=== PATIENT | female | born 1945 | race Caucasian/White ===

== ENCOUNTER 2017-07-29 14:59 | Emergency (ER) | payer MEDICARE, SELFPAY ==
[2017-07-29 15:23] VITALS: BP 114/77; PULSE 68; RESP 18; TEMP 36.6; O2SAT 96; BMI 26.4
--- NOTE | 2017-07-29 15:34 | HMH.EDUTC ---
[facility] [place] Disposition Clinical Impression: Gout Qualifiers: Gout site: toe Gout etiology: unspecified cause Chronicity: acute Laterality: right Qualified Code(s): M10.9 - Gout, unspecified Disposition: Home, Self-Care Condition on Discharge: Good Instructions: DI for Gout, Gout Additional Instructions: Take medication as prescribed Follow up with family doctor in 12-48 hours if no improvement or worsening of symptoms Straight to ER if any worsening of symptoms, redness up leg, warmth, streaks, or foot looking dark sanchez or blue in color REturn if needed REST, alow foot to rest and medication to work DO NOT DRINK GRAPEFRUIT JUICE OR EAT GRAPEFRUIT WHILE TAKING MEDICATION Prescriptions: Colchicine [Colcrys 0.6mg tablet] 0.6 mg PO BID #20 tab Indomethacin [Indocin 25mg capsule] 25 mg PO TID #15 cap Referrals: Wayne Miles MD [Primary Care Provider] - Time of Disposition: 16:49 Medical Decision Making - Medical Records Medical records reviewed: Yes: I reviewed the patient's medical records. Vital Signs: 07/29/17 15:23 Temperature 97.9 F Temperature Source Temporal Artery Scan Pulse Rate [Right Brachial] 68 Respiratory Rate 18 Blood Pressure [Right Arm] 114/77 Blood Pressure Mean [Right Arm] 89 Blood Pressure Source [Right Arm] Automatic Cuff Blood Pressure Position [Right Arm] Sitting 02 Sat by Pulse Oximetry 96 Oxygen Delivery Method Room Air - Lab Data Lab Results 07/29/17 15:40: Uric Acid 13.3 H - Davin Inquiry Pt receiving controlled substance: No Davin was queried for this patient: No - Reevaluation(s) Time: 16:24 Reevaluation #1: Patient Uric acid back and found to be elevated Discussed with Patient and contacted Dr Boyd for consult Treatment discussed and agreed with treatment. Patient educated to avoid grapefruit juice with medication [facility] [place] HPI - General Stated complaint: AO 0318 R foot injury Mode of Arrival: Family Vehicle Source of Information: Patient Limitations: No Limitations Description of Symptoms (Recalled from Triage Doc. by RN): C/O PAIN RIGHT GREAT TOE RADIATING INTO FOOT AND LEG SINCE 07/25/17 WITH NO INJURY NOTED HEENT Symptoms (Recalled from RN notes): No Resp Symptoms (Recalled from RN notes): No Skin Symptoms (Recalled from RN notes): No MS Symptoms (Recalled from RN notes): Yes (RIGHT GREAT TOE PAIN) Functional Status (Recalled from RN notes): N/A - History of Present Illness Provider Complaint: Patient state that she noticed about 4-5 days ago that she was having some pain in her right big toe State that toe was a little red, and felt like she was walking on glass when she would stand on foot States that she thought it would get better so she continued to take Tylenol and now today family made her come in to get checked because she was still complaining and states that it is painful to bend the toe and walk. - Related Data Home Medications Medication Instructions Recorded Confirmed aspirin 81 mg tablet,delayed 81 mg PO QDAY 05/22/17 release buspirone 10 mg tablet 10 mg PO BID PRN 05/22/17 07/29/17 calcium carbonate 500 mg calcium 500 mg PO BID tab 05/22/17 07/29/17 (1,250 mg) tablet carvedilol 25 mg tablet 25 mg PO BID tab 05/22/17 07/29/17 fluoxetine 20 mg capsule 20 mg PO QDAY 05/22/17 07/29/17 furosemide 40 mg tablet 40 mg PO BID tab 05/22/17 07/29/17 metformin 1,000 mg tablet 500 mg PO BID tab 05/22/17 07/29/17 multivitamin tablet 1 tab PO QDAY 05/22/17 07/29/17 nitroglycerin 0.4 mg sublingual 0.4 mg SUBLINGUAL Q5M PRN 05/22/17 07/29/17 tablet ticagrelor 90 mg tablet 90 mg PO BID tab 05/22/17 07/29/17 Previous Rx's Medication Instructions Recorded amlodipine 5 mg tablet 5 mg PO QDAY #30 tab 05/22/17 lisinopril 5 mg tablet 5 mg PO BID #60 tab 06/25/17 Colchicine [Colcrys 0.6mg tablet] 0.6 mg PO BID #20 tab 07/29/17 Indomethacin [Indocin 25mg capsule] 25 mg PO TID #15 cap 07/29/17 Allergies Allergy/AdvReac Type Severity Reacti
--- NOTE | 2017-07-29 15:42 | ED_ITS ---
[facility] [place] Disposition Clinical Impression: Gout Qualifiers: Gout site: toe Gout etiology: unspecified cause Chronicity: acute Laterality: right Qualified Code(s): M10.9 - Gout, unspecified Disposition: Home, Self-Care Condition on Discharge: Good Instructions: DI for Gout, Gout Additional Instructions: Take medication as prescribed Follow up with family doctor in 12-48 hours if no improvement or worsening of symptoms Straight to ER if any worsening of symptoms, redness up leg, warmth, streaks, or foot looking dark sanchez or blue in color REturn if needed REST, alow foot to rest and medication to work DO NOT DRINK GRAPEFRUIT JUICE OR EAT GRAPEFRUIT WHILE TAKING MEDICATION Prescriptions: Colchicine [Colcrys 0.6mg tablet] 0.6 mg PO BID #20 tab Indomethacin [Indocin 25mg capsule] 25 mg PO TID #15 cap Referrals: Wayne Miles MD [Primary Care Provider] - Time of Disposition: 16:49 Medical Decision Making - Medical Records Medical records reviewed: Yes: I reviewed the patient's medical records. Vital Signs: 07/29/17 15:23 Temperature 97.9 F Temperature Source Temporal Artery Scan Pulse Rate [Right Brachial] 68 Respiratory Rate 18 Blood Pressure [Right Arm] 114/77 Blood Pressure Mean [Right Arm] 89 Blood Pressure Source [Right Arm] Automatic Cuff Blood Pressure Position [Right Arm] Sitting 02 Sat by Pulse Oximetry 96 Oxygen Delivery Method Room Air - Lab Data Lab Results 07/29/17 15:40: Uric Acid 13.3 H - Davin Inquiry Pt receiving controlled substance: No Davin was queried for this patient: No - Reevaluation(s) Time: 16:24 Reevaluation #1: Patient Uric acid back and found to be elevated Discussed with Patient and contacted Dr Boyd for consult Treatment discussed and agreed with treatment. Patient educated to avoid grapefruit juice with medication [facility] [place] HPI - General Stated complaint: AO 0318 R foot injury Mode of Arrival: Family Vehicle Source of Information: Patient Limitations: No Limitations Description of Symptoms (Recalled from Triage Doc. by RN): C/O PAIN RIGHT GREAT TOE RADIATING INTO FOOT AND LEG SINCE 07/25/17 WITH NO INJURY NOTED HEENT Symptoms (Recalled from RN notes): No Resp Symptoms (Recalled from RN notes): No Skin Symptoms (Recalled from RN notes): No MS Symptoms (Recalled from RN notes): Yes (RIGHT GREAT TOE PAIN) Functional Status (Recalled from RN notes): N/A - History of Present Illness Provider Complaint: Patient state that she noticed about 4-5 days ago that she was having some pain in her right big toe State that toe was a little red, and felt like she was walking on glass when she would stand on foot States that she thought it would get better so she continued to take Tylenol and now today family made her come in to get checked because she was still complaining and states that it is painful to bend the toe and walk. - Related Data Home Medications Medication Instructions Recorded Confirmed aspirin 81 mg tablet,delayed 81 mg PO QDAY 05/22/17 release buspirone 10 mg tablet 10 mg PO BID PRN 05/22/17 07/29/17 calcium carbonate 500 mg calcium 500 mg PO BID tab 05/22/17 07/29/17 (1,250 mg) tablet carvedilol 25 mg tablet 25 mg PO BID tab 05/22/17 07/29/17 fluoxetine 20 mg capsule 20 mg PO QDAY 05/22/17 07/29/17 furosemide 40 mg tablet 40 mg PO BID tab 05/22/17 07/29/17 metformin 1,000 mg tablet 500 mg PO BID t
[2017-07-29 16:07] LABS: Uric Acid 13.3 mg/dL (2.6-7.2)
[2017-07-29 17:04] VITALS: BP 120/78; PULSE 70; RESP 20; TEMP 36.6; O2SAT 97
== END 2017-07-29 17:06 | disposition home or self-care (01) ==
PROVIDERS: Emergency Provider Nurse Practitioner; Family Provider Internal Medicine Adolescent Medicine; PCP Internal Medicine Adolescent Medicine
DX: M10.071 Idiopathic gout, right ankle and foot (principal); E11.9 Type 2 diabetes mellitus without complications; Z79.84 Long term (current) use of oral hypoglycemic drugs; E78.5 Hyperlipidemia, unspecified; I10 Essential (primary) hypertension; I25.10 Atherosclerotic heart disease of native coronary artery without angina pectoris; Z87.891 Personal history of nicotine dependence
CPT/HCPCS: G0463; 36415; 84550; 99202

== ENCOUNTER 2017-09-07 00:14 | Observation (INO) ==
[2017-09-07 00:43] LABS: Basophils % 0.2 % (0.1-2.0); Eosinophils # 0.1 K/mm3 (0.0-0.4); Hemoglobin 11.9 g/dL (12.2-16.2); Lymphocytes # 0.9 K/mm3 (0.7-4.5); Lymphocytes % 15.1 K/mm3 (10-50); Mean Corpuscular HGB Conc 34.9 g/dL (31.8-35.4); Mean Corpuscular Hemoglobin 30.3 pg (27.0-31.2); Mean Corpuscular Volume 86.6 fl (81-99); Mean Platelet Volume 9.7 fl (7.4-10.4); Monocytes # 0.9 K/mm3 (0.1-1.0); Monocytes % 14.4 % (1.7-9.3); Neutrophils # 4.4 K/mm3 (1.8-7.8); Neutrophils % 69.4 % (37.0-80.0); Platelet Count 221 K/mm3 (142-424); Red Blood Count 3.92 M/mm3 (4.20-5.40); Red Cell Distribution Width 12.7 % (11.5-17.5); White Blood Count 6.3 K/mm3 (4.8-10.8)
[2017-09-07 00:52] LABS: Albumin Level 3.5 gm/dL (3.4-5.0); Albumin/Globulin Ratio 0.9 (1.1-1.8); Anion Gap 20.8 mEq/L (5-15); Calcium 9.1 mg/dL (8.5-10.1); Potassium 3.8 mmoL/L (3.5-5.1); Total Protein,Serum 7.5 gm/dL (6.4-8.2)
--- NOTE | 2017-09-07 01:41 | Emergency Department Note ---
ED Disposition Clinical Impression: Gastroenteritis, Dehydration, Orthostatic hypotension Acute on chronic renal failure Qualifiers: Acute renal failure type: unspecified Chronic kidney disease stage: unspecified stage Qualified Code(s): N17.9 - Acute kidney failure, unspecified Disposition: Admitted As Inpatient Condition on Discharge: Fair Referrals: Wayne Miles MD [Primary Care Provider] - Time of Disposition: 02:10 - Critical Care Critical Care Time: No Attestation: On 09/07/17, the high probability of a clinically significant, sudden or life threatening deterioration of the following system(s) required my full and direct attention, intervention and personal management. The time I documented below is in addition to time spent performing reported procedures but includes the following listed in this critical care notation. Medical Decision Making - Medical Records Medical records reviewed: Yes: I reviewed the patient's medical records. - Davin Inquiry Pt receiving controlled substance: No Vital Signs: 09/07/17 00:14 09/07/17 02:09 09/07/17 02:13 Temperature 97.4 F L Temperature Source Oral Pulse Rate [Orthostatic Lying Right Radial] 100 H 96 H Pulse Rate [Orthostatic Sitting Right Brachial] 100 H Pulse Rate [Orthostatic Standing Right Radial] 106 H Pulse Rate [Right Radial] 73 Respiratory Rate 14 Blood Pressure [Orthostatic Lying Right Arm] 106/58 106/70 Blood Pressure [Orthostatic Sitting Right Arm] 98/51 Blood Pressure [Orthostatic Standing Right Arm] 94/50 Blood Pressure [Right Arm] 106/65 Blood Pressure Mean [Right Arm] 78 Blood Pressure Source [Right Arm] Automatic Cuff Blood Pressure Position [Right Arm] Sitting 02 Sat by Pulse Oximetry 99 Oxygen Delivery Method Room Air - Lab Data Lab results reviewed: Yes: I reviewed the patient's lab results. Lab Results 09/07/17 00:22: WBC 6.3, RBC 3.92 L, Hgb 11.9 L, Hct 34.0 L, MCV 86.6, MCH 30.3 , MCHC 34.9, RDW 12.7, Plt Count 221, MPV 9.7, Neut % (Auto) 69.4, Lymph % (Auto ) 15.1, [place] % (Auto) 14.4 H, Eos % (Auto) 1.0, Baso % (Auto) 0.2, Neut # (Auto ) 4.4, Lymph # (Auto) 0.9, [place] # (Auto) 0.9, Eos # (Auto) 0.1, Baso # (Auto) 0.0 09/07/17 00:22: Sodium 133 L, Potassium 3.8, Chloride 96 L, Carbon Dioxide 20 L , Anion Gap 20.8 H, BUN 82 H, Creatinine 2.24 H, Estimated Creat Clear 21, Estimated GFR 21 L, Est GFR ( Amer) 26 L, Glucose 116 H, Calcium 9.1, Total Bilirubin 1.0, AST 75 H, ALT 72, Alkaline Phosphatase 124 H, Total Protein 7.5, Albumin 3.5, Globulin 4.0 H, Albumin/Globulin Ratio 0.9 L Result diagrams: 09/07/17 00:22 09/07/17 00:22 Orders (Tests/Meds): ED MEDICATIONS Generic Name Dose Route Start Last Admin Trade Name Freq PRN Reason Stop Dose Admin Sodium Chloride 1,000 mls @ 999 mls/hr 09/07/17 01:45 09/07/17 01:42 Sod Chlor 0.9% 1000ml Bag IV 09/07/17 02:45 999 mls/hr .Q1H1M LADI Administration Sodium Chloride 1,000 mls @ 999 mls/hr 09/07/17 01:45 09/07/17 01:46 Sod Chlor 0.9% 1000ml Bag IV 09/07/17 02:45 Not Given .Q1H1M LADI Discontinued Medications Generic Name Dose Route Start Last Admin Trade Name Freq PRN Reason Stop Dose Admin Diphenoxylate HCl/Atropine 5 mg 09/07/17 01:38 09/07/17 01:42 Lomotil 2.5mg Tablet PO 09/07/17 01:39 5 mg ONCE ONE Administration Lactated Ringer's 1,000 mls @ 999 mls/hr 09/07/17 00:30 09/07/17 00:28 Lactated Ringer's 1000 Ml Bag IV 09/07/17 01:30 999 mls/hr .Q1H1M LADI Administration Loperamide HCl 4 mg 09/07/17 01:38 09/07/17 01:42 Imodium 2 Mg Capsule PO 09/07/17 01:39 4 mg ONCE ONE Administration Ondansetron HCl 4 mg 09/07/17 00:20 09/07/17 00:28 Zofran 4mg/2ml Vial IV 09/07/17 00:21 4 mg ONCE ONE Administration ORDERS Category Date Time Status Diarrhea Panel, PCR Stat Lab 09/07/17 00:20 Ordered Rapid Influenza A&B Antigens Stat Lab 09/07/17 00:21 Ordered Uric Acid Stat Lab 09/07/17 02:14 Ordered Urinalysis-Acute [Urinalysis and Microscopic] Stat Lab 09/07/17 00:19 Ordered - Physician Consults Physician Consulted: Dr New patel for Dr Miles Time: 02:10 Reason -: Admission, Pt condition Comment/Response: Advised of patient's presentation findings, orthostatic blood pressure changes, as well as patient's GFR of 21, which would preclude the use of metformin at this point. Comparing the renal function trends over the past 6 months it makes it obvious that patient needs to be taken off metformin at this time. Nausea/Vomiting/Diarrhea HPI - General Chief complaint: Nausea/Vomiting/Diarrhea Stated complaint: nausea Time Seen by Provider: 09/07/17 00:20 Mode of Arrival: EMS Limitations: No Limitations Description of Symptoms (Recalled from ER Triage Doc. by RN): Pt. reports nausea , vomiting and diarrhea for 3 days. And tonight she became very weak. - History of Present Illness HPI Narrative: This is a 72-year-old lady arriving to the emergency room by EMS, complaining with generalized weakness, inability to stand, profuse nausea, vomiting and diarrhea, unable to hold anything down over the past 3 days. The patient denies any chest pain, shortness of breath, diaphoresis. Her comorbid conditions are diabetes and coronary artery disease. She takes metformin for her diabetes. Denies being prescribed antibiotics recently, denies any recent travel or exposure to sick contacts. MD complaint: nausea, vomiting, diarrhea Description of Vomiting: food contents Description of Diarrhea: water Associated Abdominal Pain: No Quality: cramping Relieving factors: none Exacerbating factors: vomiting Associated symptoms: nausea/vomiting - Related Data Home Medications Medication Instructions Recorded Confirmed aspirin 81 mg tablet,delayed 81 mg PO QDAY 05/22/17 09/07/17 release buspirone 10 mg tablet 10 mg PO BID PRN 05/22/17 09/07/17 calcium carbonate 500 mg calcium 500 mg PO BID tab 05/22/17 09/07/17 (1,250 mg) tablet furosemide 40 mg tablet 40 mg PO BID tab 05/22/17 09/07/17 metformin 1,000 mg tablet 500 mg PO BID tab 05/22/17 09/07/17 multivitamin tablet 1 tab PO QDAY 05/22/17 09/07/17 Fluoxetine HCl [Prozac] 20 mg PO DAILY 09/07/17 09/07/17 Ticagrelor [Brilinta 90mg Tablet] 90 mg PO BID 09/07/17 09/07/17 Previous Rx's Medication Instructions Recorded amlodipine 5 mg tablet 5 mg PO QDAY #30 tab 05/22/17 Allergies Allergy/AdvReac Type Severity Reaction Status Date / Time Kkpiicl-Eub-Qjn Reductase Allergy Verified 09/07/17 00:[address] [facility] History I have reviewed the patient's past medical history: Yes Medical History: Reports:: Coronary Artery Disease, Diabetes Mellitus Type 2, Hyperlipidemia, Hypertension Denies:: Diabetes Mellitus Type 1 Other Medical History: Reports: Anemia Comment: History of CVA, Muscle aches due to statin Other Surgeries: Yes: Other (CABG, Cardiac cath in 2015, 04/25/2017) Amputation: No Fractures: No - Social History Smoking Status: Former smoker Tobacco Type: cigarettes Alcohol Intake: never Substance Use Type: denies use Occupational Status: retired Housing: house Household Members: spouse - Psychiatric History Expresses thoughts of harming self/others: None Suicide Plan Description: No Plan Family Hx:: Coronary Artery Disease, Heart Attack, Hypertension ROS Obtained: Yes All systems reviewed & no additional complaints, Yes Systems reviewed as appropriate & no additional complaints - Gastrointestinal Gastrointestingal: Reports: system reviewed and no additional complaints, except as docu, as per HPI, diarrhea, nausea, vomiting Physical Exam - General General appearance: alert, in no apparent distress - Head Head exam: atraumatic, normocephalic, normal inspection - Neck Neck exam: Present: normal inspection, full ROM, trachea midline. Absent: meningismus, lymphadenopathy - Chest Chest inspection: Present: normal inspection, symmetric chest wall rise. Absent : tenderness - Respiratory Respiratory exam: Present: normal lung sounds bilaterally. Absent: respiratory distress - Cardiovascular Cardiovascular exam: Present: regular rate, normal rhythm. Absent: JVD - Abdominal Exam Abdominal exam: Present: soft, normal bowel sounds. Absent: distention, tenderness, guarding - Extremities Exam Extremities exam: Present: normal inspection, full ROM, normal capillary refill. Absent: calf tenderness - Back Exam Back exam: Present: normal inspection. Absent: tenderness - Neurological Exam Neurological exam: Present: alert, oriented X3 - Psychiatric Psychiatric exam: Present: normal affect, normal mood - Skin Skin exam: Present: warm, dry, intact, normal color - Lymphatic Lymphatic Findings: no adenopathy
[2017-09-07 03:58] LABS: Microscopic, Urine URINE MICROSCOPIC (MICROSCOPIC)
[2017-09-07 04:41] LABS: Appearance,Urine CLEAR (Clear); Bilirubin,Urine Negative (Negative); Blood, Urine 3+ (Negative); Color,Urine YELLOW (Yellow); Glucose,Urine (UA) Negative (Negative); Ketones,Urine Negative (Negative); Leukocyte Esterase,Urine 2+ (Negative); PH,Urine 5.5 (5.0-8.5); Protein,Urine Negative (Negative); Urobilinogen,Urine 0.2 EU/dl (0.2)
[2017-09-07 06:03] LABS: Bacteria,Urine 2+ /lpf; Hyaline Casts,Urine Occasional #/lpf (0); Mucus,Urine 1+ /lpf; WBC,Urine 20-50 #/hpf (0-3)
--- NOTE | 2017-09-07 07:38 | Pharmacy Consult Notes ---
[facility] Pharmacy VTE Monitoring - Patient Demographics Admission date: 09/07/17 Report Date: 09/07/17 Time: 07:38 Allergies/Adverse Reactions: Patient Allergies Zjxgyjf-Vrx-Amo Reductase Inhibitor Allergy (Verified 09/07/17 00:20) Height: 1.52 m Weight: 54.941 kg Patient Problems: Current Active Problems Gastroenteritis (Acute) Dehydration (Acute) Acute on chronic renal failure (Acute) Orthostatic hypotension (Acute) - VTE Risk Labs: VTE Related Lab Results Hgb 11.9 g/dL (12.2-16.2) L 09/07/17 00:22 Hct 34.0 % (37.0-47.0) L 09/07/17 00:22 Plt Count 221 K/mm3 (142-424) 09/07/17 00:22 BUN 82 mg/dL (7-18) H 09/07/17 00:22 Creatinine 2.24 mg/dL (0.55-1.02) H 09/07/17 00:22 Estimated Creat Clear 21 mL/min (0-300) 09/07/17 00:22 Was VTE Risk Assessment Performed: Yes VTE Score: 8 VTE Risk Level: Moderate Risk - Prophylaxis VTE Prophylaxis Ordered?: Yes Types of VTE Prophylaxis: TEDS Knee High Location of Applied Device: Bilateral Lower Extremeties - VTE Diagnosis Confirmed Treatment or plan recommended: Continue Current Treatment
[2017-09-07 08:17] LABS: Albumin Level 3.2 gm/dL (3.4-5.0); Albumin/Globulin Ratio 0.9 (1.1-1.8); Anion Gap 18.4 mEq/L (5-15); Calcium 8.5 mg/dL (8.5-10.1); Globulin 3.6 gm/dl (1.3-3.2); Potassium 3.4 mmoL/L (3.5-5.1); Total Protein,Serum 6.8 gm/dL (6.4-8.2)
[2017-09-07 08:20] LABS: Basophils % 0.3 % (0.1-2.0); Eosinophils # 0.1 K/mm3 (0.0-0.4); Eosinophils % 1.2 % (0.1-12.0); Hematocrit 32.1 % (37.0-47.0); Hemoglobin 11.2 g/dL (12.2-16.2); Lymphocytes # 0.9 K/mm3 (0.7-4.5); Lymphocytes % 16.3 K/mm3 (10-50); Mean Corpuscular Volume 85.6 fl (81-99); Mean Platelet Volume 9.9 fl (7.4-10.4); Monocytes # 0.7 K/mm3 (0.1-1.0); Monocytes % 13.6 % (1.7-9.3); Neutrophils # 3.7 K/mm3 (1.8-7.8); Neutrophils % 68.6 % (37.0-80.0); Platelet Count 201 K/mm3 (142-424); Red Blood Count 3.74 M/mm3 (4.20-5.40); Red Cell Distribution Width 12.7 % (11.5-17.5); White Blood Count 5.4 K/mm3 (4.8-10.8)
--- NOTE | 2017-09-07 08:22 | History & Physical Report ---
*Admission Date: 09/07/17 *Chief complaint: Diarrhea/vomiting *History of present illness: 72-year-old white female with multiple medical problems, cardiac disease, gouty arthritis, and chronic kidney disease with baseline creatinine 1.2 who came to the emergency department after 24-48 hours of nausea, vomiting, poor p.o. intake. And diarrhea. Patient was found to be dehydrated, had evidence of acute kidney injury superimposed on chronic kidney disease and was dehydrated. Admitted to hospital for IV fluids, medications orally have been held. This morning she feels better, has been able to eat a few bites of breakfast. She denies diarrhea over the past couple of hours. [facility] History I have reviewed the patient's past medical history: Yes Medical History: Reports:: Congenital Heart Disease, Coronary Artery Disease, Diabetes Mellitus Type 2, Hyperlipidemia, Hypertension, Myocardial Infarction Denies:: Cancer, Diabetes Mellitus Type 1, MRSA Other Medical History: Reports: Anemia, Cataracts Other Surgeries: Yes: CABG, Cardiac Catheterization, Cardiac Surgery, Colonoscopy, Coronary Stent, EGD, Other (CABG, Cardiac cath in 2015, 04/25/2017) Amputation: No Fractures: No - *Social History Educational Level: Completed High School Smoking Status: Never smoker Tobacco Type: cigarettes Alcohol Intake: never Substance Use Type: denies use Occupational Status: retired Housing: house Household Members: spouse - Psychiatric History Expresses thoughts of harming self/others: None Suicide Plan Description: No Plan *Family Hx:: Coronary Artery Disease, Heart Attack, Hypertension Review of Systems - Review of Systems Review of systems:: pertinent systems reviewed and negative unless documented below Meds Home Medications Medication Instructions Recorded Confirmed Type aspirin 81 mg tablet,delayed 81 mg PO QDAY 05/22/17 09/07/17 History release buspirone 10 mg tablet 10 mg PO BID PRN 05/22/17 09/07/17 History multivitamin tablet 1 tab PO QDAY 05/22/17 09/07/17 History Amlodipine Besylate [Norvasc 5mg 5 mg PO DAILY 09/07/17 09/07/17 History tablet] Calcium Carbonate 500 mg PO BID 09/07/17 09/07/17 History Fluoxetine HCl [Prozac] 20 mg PO DAILY 09/07/17 09/07/17 History Furosemide [Lasix 40mg tab] 40 mg PO BID 09/07/17 09/07/17 History Metformin HCl [Metformin 500mg 1,000 mg PO BID 09/07/17 09/07/17 History Tablet] Ticagrelor [Brilinta 90mg Tablet] 90 mg PO BID 09/07/17 09/07/17 History Allergies Allergy/AdvReac Type Severity Reaction Status Date / Time Eaqutrf-Nko-Xpt Reductase Allergy Verified 09/07/17 00:20 Inhibitor Exam Vital signs and Labs for Last 24 Hours: Temp Pulse Resp BP Pulse Ox 97.8 F 76 20 156/52 100 09/07/17 03:23 09/07/17 03:23 09/07/17 03:23 09/07/17 03:23 09/07/17 03:23 Laboratory Results - last 24 hr 09/07/17 03:45: Urine Color Yellow, Urine Appearance Clear, Urine pH 5.5, Ur Specific [place] 1.010, Urine Protein Negative, Urine Glucose (UA) Negative, Urine Ketones Negative, Urine Blood 3+, Urine Nitrate Negative, Urine Bilirubin Negative, Urine Urobilinogen 0.2, Ur Leukocyte Esterase 2+ A, Urine RBC 5-10, Urine WBC 20-50, Ur Squamous Epith Cells 5-10, Urine Bacteria 2+, Hyaline Casts Occasional, Urine Mucus 1+ 09/07/17 03:45: Influenza Type A Ag Negative, Influenza Type B Ag Negative I & O for Last 24 hours: Intake & Output 09/04/17 09/05/17 09/06/17 09/07/17 11:59 11:59 11:59 11:59 Intake Total 173 / 173 Output Total 900 / 900 Balance -727 / -727 Weight 121 lb 2 oz Narrative: Patient is alert, oriented 3. Abdomen is soft. Lungs are clear, heart rate regular without murmurs. Extremities show no evidence of acute gouty arthritis. She has no redness. She has no edema. Warm distal extremities. Good capillary refill. H&P: Result - Labs Labs: Urine 09/07/17 Range/Units 03:45 Urine Color Yellow (Yellow) Urine Appearance Clear (Clear) Urine pH 5.5 (5.0-8.5) Ur Specific [place] 1.010 (1.005-1.030) Urine Protein Negative (Negative) Urine Glucose (UA) Negative (Negative) Assessment and Plan (1) Acute kidney injury Current visit: Yes Status: Acute Category: Medical Code(s): N17.9 - Acute kidney failure, unspecified (2) Dehydration Current visit: Yes Status: Acute Category: Medical Code(s): E86.0 - Dehydration (3) Orthostatic hypotension Current visit: Yes Status: Acute Category: Medical Code(s): I95.1 - Orthostatic hypotension Overall patient seems to be improved. Plan will be to change diet to clear liquids. Labs tomorrow morning. Restart some home medications, obviously hold metformin and other potentially nephrotoxic medications in the context of her acute kidney injury. Check diarrhea PCR.
[2017-09-08 06:17] LABS: Basophils % 0.4 % (0.1-2.0); Eosinophils # 0.1 K/mm3 (0.0-0.4); Eosinophils % 1.3 % (0.1-12.0); Hematocrit 30.8 % (37.0-47.0); Hemoglobin 10.8 g/dL (12.2-16.2); Lymphocytes # 0.7 K/mm3 (0.7-4.5); Lymphocytes % 18.7 K/mm3 (10-50); Mean Corpuscular HGB Conc 35.2 g/dL (31.8-35.4); Mean Corpuscular Hemoglobin 30.2 pg (27.0-31.2); Mean Corpuscular Volume 85.9 fl (81-99); Monocytes # 0.5 K/mm3 (0.1-1.0); Monocytes % 13.9 % (1.7-9.3); Neutrophils # 2.4 K/mm3 (1.8-7.8); Neutrophils % 65.7 % (37.0-80.0); Platelet Count 186 K/mm3 (142-424); Red Blood Count 3.59 M/mm3 (4.20-5.40); Red Cell Distribution Width 12.9 % (11.5-17.5); White Blood Count 3.6 K/mm3 (4.8-10.8)
[2017-09-08 06:49] LABS: Anion Gap 15.1 mEq/L (5-15); Bilirubin,Total 1.1 mg/dL (0.2-1.0); Calcium 8.5 mg/dL (8.5-10.1); Globulin 3.1 gm/dl (1.3-3.2); Potassium 3.1 mmoL/L (3.5-5.1); Total Protein,Serum 6.1 gm/dL (6.4-8.2)
--- NOTE | 2017-09-08 08:41 | Discharge Summary ---
General - General Admission date: 09/07/17 Discharge date: 09/08/17 HPI HPI: 72-year-old white female with multiple medical problems, cardiac disease, gouty arthritis, and chronic kidney disease with baseline creatinine 1.2 who came to the emergency department after 24-48 hours of nausea, vomiting, poor p.o. intake. And diarrhea. Patient was found to be dehydrated, had evidence of acute kidney injury superimposed on chronic kidney disease and was dehydrated. Admitted to hospital for IV fluids, medications orally have been held. This morning she feels better, has been able to eat a few bites of breakfast. She denies diarrhea over the past couple of hours. Hospital Course Hospital Course: Patient was admitted, she was given cautious IV fluids and improved very nicely. Diet was transitioned from clear liquids to low-fat diet yesterday and she tolerated this well and this morning has eaten a good breakfast. She remains somewhat weak but her labs have improved and she is able to do some of her activities of daily living. Plan will be to discharge her home in the care of her . She has appointment with me on Sunday in my [place] office and have urged her to keep this to follow-up her metabolic issues. Objective Vital signs: Temp Pulse Resp BP Pulse Ox 98.5 F 91 H 18 158/68 97 09/08/17 04:00 09/08/17 04:00 09/08/17 04:00 09/08/17 04:00 09/08/17 04:00 Narrative: Patient appears chronically ill and older than her stated age but is alert, lungs are heart rate regular, abdomen soft, skin turgor much improved, mouth is moist. Results Labs on day of discharge: Labs from last 24 hours 09/08/17 09/08/17 09/08/17 06:11 05:45 05:45 WBC 3.6 L D RBC 3.59 L Hgb 10.8 L Hct 30.8 L MCV 85.9 MCH 30.2 MCHC 35.2 RDW 12.9 Plt Count 186 MPV 10.0 Neut % (Auto) 65.7 Lymph % (Auto) 18.7 [place] % (Auto) 13.9 H Eos % (Auto) 1.3 Baso % (Auto) 0.4 Neut # (Auto) 2.4 Lymph # (Auto) 0.7 [place] # (Auto) 0.5 Eos # (Auto) 0.1 Baso # (Auto) 0.0 Sodium 141 Potassium 3.1 L Chloride 103 Carbon Dioxide 26 Anion Gap 15.1 H BUN 34 H D Creatinine 0.98 D Estimated Creat Clear 43 Estimated GFR 56 L Est GFR ( Amer) 67 D Glucose 121 H D POC Glucose 122 H Calcium 8.5 Total Bilirubin 1.1 H AST 76 H ALT 73 Alkaline Phosphatase 104 Total Protein 6.1 L Albumin 3.0 L Globulin 3.1 Albumin/Globulin Ratio 1.0 L Urine Color Urine Appearance Urine pH Ur Specific [place] Urine Protein Urine Glucose (UA) Urine Ketones Urine Blood Urine Nitrate Urine Bilirubin Urine Urobilinogen Ur Leukocyte Esterase Urine RBC Urine WBC Ur Squamous Epith Cells Urine Bacteria Hyaline Casts Urine Mucus 09/07/17 09/07/17 09/07/17 20:13 17:03 11:34 WBC RBC Hgb Hct MCV MCH MCHC RDW Plt Count MPV Neut % (Auto) Lymph % (Auto) [place] % (Auto) Eos % (Auto) Baso % (Auto) Neut # (Auto) Lymph # (Auto) [place] # (Auto) Eos # (Auto) Baso # (Auto) Sodium Potassium Chloride Carbon Dioxide Anion Gap BUN Creatinine Estimated Creat Clear Estimated GFR Est GFR ( Amer) Glucose POC Glucose 134 H 115 H 105 Calcium Total Bilirubin AST ALT Alkaline Phosphatase Total Protein Albumin Globulin Albumin/Globulin Ratio Urine Color Urine Appearance Urine pH Ur Specific [place] Urine Protein Urine Glucose (UA) Urine Ketones Urine Blood Urine Nitrate Urine Bilirubin Urine Urobilinogen Ur Leukocyte Esterase Urine RBC Urine WBC Ur Squamous Epith Cells Urine Bacteria Hyaline Casts Urine Mucus 09/07/17 03:45 WBC RBC Hgb Hct MCV MCH MCHC RDW Plt Count MPV Neut % (Auto) Lymph % (Auto) [place] % (Auto) Eos % (Auto) Baso % (Auto) Neut # (Auto) Lymph # (Auto) [place] # (Auto) Eos # (Auto) Baso # (Auto) Sodium Potassium Chloride Carbon Dioxide Anion Gap BUN Creatinine Estimated Creat Clear Estimated GFR Est GFR ( Amer) Glucose POC Glucose Calcium Total Bilirubin AST ALT Alkaline Phosphatase Total Protein Albumin Globulin Albumin/Globulin Ratio Urine Color Yellow Urine Appearance Clear Urine pH 5.5 Ur Specific [place] 1.010 Urine Protein Negative Urine Glucose (UA) Negative Urine Ketones Negative Urine Blood 3+ Urine Nitrate Negative Urine Bilirubin Negative Urine Urobilinogen 0.2 Ur Leukocyte Esterase 2+ A Urine RBC 5-10 Urine WBC 20-50 Ur Squamous Epith Cells 5-10 Urine Bacteria 2+ Hyaline Casts Occasional Urine Mucus 1+ Preliminary micro results at discharge 09/07/17 03:45 Urine Culture - Preliminary Urine,Clean Catch Gram Negative Rods DS: Diagnosis - Discharge Diagnosis (1) Acute kidney injury Status: Acute (2) Dehydration Status: Acute (3) Orthostatic hypotension Status: Acute Discharge Plan - Patient Discharge Instructions ACTIVITY: Continue current activity DIET: continue same diet - Follow up Plan Follow up with: Wayne Miles MD [Primary Care Provider] - 09/11/17 Disposition: Home, Self-Long Term Medications: Home Medications Medication Instructions Recorded Confirmed Type aspirin 81 mg tablet,delayed 81 mg PO DAILY 05/22/17 09/07/17 History release buspirone 10 mg tablet 10 mg PO TID 05/22/17 09/07/17 History multivitamin tablet 1 tab PO DAILY 05/22/17 09/07/17 History Amlodipine Besylate [Norvasc 5mg 5 mg PO DAILY 09/07/17 09/07/17 History tablet] Calcium Carbonate 500 mg PO BID 09/07/17 09/07/17 History Carvedilol [Carvedilol 25mg Tab] 25 mg PO BID 09/07/17 09/07/17 History Colchicine 0.6 mg PO BID 09/07/17 09/07/17 History Fluoxetine HCl [Prozac] 20 mg PO DAILY 09/07/17 09/07/17 History Furosemide [Lasix 40mg tab] 40 mg PO BID 09/07/17 09/07/17 History Metformin HCl 1,000 mg PO BID 09/07/17 09/07/17 History Ticagrelor [Brilinta 90mg Tablet] 90 mg PO BID 09/07/17 09/07/17 History Prescriptions/Medication Reconciliation: Continue aspirin 81 mg tablet,delayed release 81 mg PO DAILY buspirone 10 mg tablet 10 mg PO TID multivitamin tablet 1 tab PO DAILY Carvedilol [Carvedilol 25mg Tab] 25 mg PO BID Colchicine 0.6 mg PO BID Metformin HCl 1,000 mg PO BID Fluoxetine HCl [Prozac] 20 mg PO DAILY Ticagrelor [Brilinta 90mg Tablet] 90 mg PO BID Furosemide [Lasix 40mg tab] 40 mg PO BID Calcium Carbonate 500 mg PO BID Amlodipine Besylate [Norvasc 5mg tablet] 5 mg PO DAILY
== END 2017-09-08 10:35 | disposition home or self-care (01) ==
LOC: ER 00:14 → 2ND 02:21 → INTOOBSV 02:30 → 2ND 02:35
PROVIDERS: ADMIT Family Medicine; ATTEND Internal Medicine Adolescent Medicine

== ENCOUNTER 2017-10-29 02:46 | Inpatient (IN) ==
[2017-10-29 03:07] LABS: Basophils # 0.1 K/mm3 (0-0.2); Basophils % 0.3 % (0.1-2.0); Eosinophils # 0.3 K/mm3 (0.0-0.4); Eosinophils % 1.6 % (0.1-12.0); Hemoglobin 10.8 g/dL (12.2-16.2); Lymphocytes # 1.5 K/mm3 (0.7-4.5); Lymphocytes % 8.5 K/mm3 (10-50); Mean Corpuscular HGB Conc 30.9 g/dL (31.8-35.4); Mean Corpuscular Hemoglobin 28.3 pg (27.0-31.2); Mean Corpuscular Volume 91.7 fl (81-99); Mean Platelet Volume 7.5 fl (7.4-10.4); Monocytes % 5.4 % (1.7-9.3); Neutrophils # 15.2 K/mm3 (1.8-7.8); Neutrophils % 84.2 % (37.0-80.0); Platelet Count 438 K/mm3 (142-424); Red Blood Count 3.81 M/mm3 (4.20-5.40); Red Cell Distribution Width 14.3 % (11.5-17.5); White Blood Count 18.1 K/mm3 (4.8-10.8)
[2017-10-29 03:25] LABS: Anion Gap 13.6 mEq/L (5-15); Calcium 8.8 mg/dL (8.5-10.1); Eosinophils % 2 % (0-3); Lymphocytes % 9 % (10-50); Monocytes % 2 % (2-9); Neutrophils % 80 % (42-76); Potassium 3.6 mmoL/L (3.5-5.1); Total Cells Counted 100
[2017-10-29 03:26] LABS: Hypochromasia 1+; Rouleaux 2+
[2017-10-29 03:55] LABS: Appearance,Urine CLEAR (Clear); Bilirubin,Urine Negative (Negative); Blood, Urine Negative (Negative); Color,Urine YELLOW (Yellow); Glucose,Urine (UA) Negative (Negative); Ketones,Urine Negative (Negative); Leukocyte Esterase,Urine Negative (Negative); Microscopic, Urine URINE MICROSCOPIC (MICROSCOPIC); Protein,Urine 1+ (Negative); Urobilinogen,Urine 0.2 EU/dl (0.2)
--- NOTE | 2017-10-29 04:10 | Emergency Department Note ---
ED Disposition Clinical Impression: Renal insufficiency Community acquired pneumonia Qualifiers: Laterality: right Lung location: upper lobe of lung Qualified Code(s): J18.1 - Lobar pneumonia, unspecified organism Anemia Qualifiers: Anemia type: unspecified type Qualified Code(s): D64.9 - Anemia, unspecified Disposition: Admitted as Observation Condition on Discharge: Good Referrals: Wayne Miles MD [Primary Care Provider] - - Critical Care Critical Care Time: No Attestation: On 10/29/17, the high probability of a clinically significant, sudden or life threatening deterioration of the following system(s) required my full and direct attention, intervention and personal management. The time I documented below is in addition to time spent performing reported procedures but includes the following listed in this critical care notation. Medical Decision Making - Medical Records Medical records reviewed: Yes: I reviewed the patient's medical records. - Davin Inquiry Pt receiving controlled substance: No Vital Signs: 10/29/17 02:49 10/29/17 03:48 10/29/17 04:00 Temperature 99.2 F 100.2 F H Temperature Source Oral Oral Pulse Rate [Right Radial] 108 H 110 H Respiratory Rate 16 16 Blood Pressure [Right Arm] 123/64 152/74 Blood Pressure Mean [Right Arm] 83 100 Blood Pressure Source [Right Arm] Automatic Cuff Blood Pressure Position [Right Arm] Sitting 02 Sat by Pulse Oximetry 93 L 92 L Oxygen Delivery Method Room Air Room Air - Lab Data Lab results reviewed: Yes: I reviewed the patient's lab results. Lab Results 10/29/17 03:00: WBC 18.1 H, RBC 3.81 L, Hgb 10.8 L, Hct 35.0 L, MCV 91.7, MCH 28.3, MCHC 30.9 L, RDW 14.3, Plt Count 438 H, MPV 7.5, Neut % (Auto) 84.2 H, Lymph % (Auto) 8.5 L, [place] % (Auto) 5.4, Eos % (Auto) 1.6, Baso % (Auto) 0.3, Neut # (Auto) 15.2 H, Lymph # (Auto) 1.5, [place] # (Auto) 1.0, Eos # (Auto) 0.3, Baso # (Auto) 0.1, Total Counted 100, Neutrophils % (Manual) 80 H, Band Neutrophils % 7.0, Lymphocytes % (Manual) 9 L, Monocytes % (Manual) 2, Eosinophils % (Manual) 2, Platelet Estimate Normal, Hypochromasia 1+, Rouleaux 2 + 10/29/17 03:00: Sodium 138, Potassium 3.6, Chloride 99, Carbon Dioxide 29, Anion Gap 13.6, BUN 27 H, Creatinine 1.25 H, Estimated Creat Clear 37, Estimated GFR 42 L, Est GFR ( Amer) 51 L, Glucose 180 H, Calcium 8.8, Troponin I 0.02 10/29/17 03:55: Urine Color Yellow, Urine Appearance Clear, Urine pH 6.0, Ur Specific [place] 1.010, Urine Protein 1+, Urine Glucose (UA) Negative, Urine Ketones Negative, Urine Blood Negative, Urine Nitrate Negative, Urine Bilirubin Negative, Urine Urobilinogen 0.2, Ur Leukocyte Esterase Negative, Urine WBC 3-5 , Ur Squamous Epith Cells 5-10 Result diagrams: 10/29/17 03:00 10/29/17 03:00 Orders (Tests/Meds): ED MEDICATIONS Generic Name Dose Route Start Last Admin Trade Name Freq PRN Reason Stop Dose Admin Azithromycin 500 mg/ Sodium 250 mls @ 250 mls/hr 10/29/17 04:15 Chloride IV 11/12/17 04:14 Q24H LADI Protocol Ceftriaxone Sodium 1 gm/ 50 mls @ 100 mls/hr 10/29/17 04:15 Sodium Chloride IV 11/12/17 04:14 Q24H LADI Protocol Sodium Chloride 3 ml 10/29/17 04:11 Sodium Chloride 3% 15ml Neb IH 11/28/17 04:10 ONCE PRN INDUCE SPUTUM COLLECTION Discontinued Medications Generic Name Dose Route Start Last Admin Trade Name Freq PRN Reason Stop Dose Admin Acetaminophen 500 mg 10/29/17 04:04 10/29/17 04:10 Tylenol 500mg Tablet PO 10/29/17 04:05 500 mg ONCE ONE Administration Sodium Chloride 1,000 mls @ 999 mls/hr 10/29/17 03:00 10/29/17 03:05 Sod Chlor 0.9% 1000ml Bag IV 10/29/17 04:00 999 mls/hr .Q1H1M LADI Administration Methylprednisolone Sodium Succinate 125 mg 10/29/17 03:00 10/29/17 03:05 Solu-Medrol 125mg/2ml Vial IV 10/29/17 03:01 125 mg ONCE ONE Administration ORDERS Category Date Time Status XR chest 2V Stat Exams 10/29/17 02:54 Taken BNP [B-Type Natriuretic Peptide] Stat Lab 10/29/17 04:14 Ordered Lactic Acid Stat Lab 10/29/17 03:40 Ordered Blood Culture Stat Micro 10/29/17 03:55 Ordered Sputum Culture & Gram Stain Stat Micro 10/29/17 04:11 Ordered 12-lead EKG Request [ECG Request by /Luz] Stat Y 10/29/17 02:54 Ordered - Radiology Data #1 Image(s): Chest Image Reviewed: Yes I reviewed the patient's radiology image Preliminary Findings: Abnormal (cap ) - ECG Data Tracing #1 I reviewed this ECG and interpreted as documented below: Arrhythmias present: sinus tach Ischemic changes: non-specific ST-T wave changes - Physician Consults Physician Consulted: delma Reason -: Admission Resp/SOB HPI - General Chief Complaint: Shortness of Breath/Dyspnea Stated Complaint: shortness of air Time Seen by Provider: 10/29/17 02:55 Mode of Arrival: EMS Source of Information: Patient, EMS, Medical Record Limitations: No Limitations Description of Symptoms (Recalled from ER Triage Doc. by RN): Woke up feeling short of breath, nauseated, flush, and felt like her heart was racing. - History of Present Illness sob this am with feeling of palpitations with sl fever but no chest pain MD Complaint: shortness of breath Onset (ago): hour(s) Severity: moderate Relieving factors: nothing Exacerbating factors: nothing Treatment prior to arrival: none - Related Data Home oxygen amount: none Home Medications Medication Instructions Recorded Confirmed aspirin 81 mg tablet,delayed 81 mg PO DAILY 05/22/17 10/29/17 release buspirone 10 mg tablet 10 mg PO TID 05/22/17 10/29/17 multivitamin tablet 1 tab PO DAILY 05/22/17 10/29/17 Calcium Carbonate 500 mg PO BID 09/07/17 10/29/17 Carvedilol [Carvedilol 25mg Tab] 25 mg PO BID 09/07/17 10/29/17 Colchicine 0.6 mg PO BID 09/07/17 10/29/17 Fluoxetine HCl [Prozac] 20 mg PO DAILY 09/07/17 10/29/17 Furosemide [Lasix 40mg tablet] 40 mg PO BID 09/07/17 10/29/17 Metformin HCl 1,000 mg PO BID 09/07/17 10/29/17 Ticagrelor [Brilinta 90mg Tablet] 90 mg PO BID 09/07/17 10/29/17 Previous Rx's Medication Instructions Recorded amlodipine 5 mg tablet 5 mg PO DAILY #90 tab 10/16/17 Allergies Allergy/AdvReac Type Severity Reaction Status Date / Time Ehbkrur-Ucg-Feo Reductase Allergy Verified 10/29/17 02:49 Inhibitor [facility] History I have reviewed the patient's past medical history: Yes Medical History: Reports:: Congenital Heart Disease, Coronary Artery Disease, Diabetes Mellitus Type 2, Hyperlipidemia, Hypertension, Myocardial Infarction Denies:: Cancer, Diabetes Mellitus Type 1, MRSA Other Medical History: Reports: Anemia, Cataracts Comment: History of CVA, Muscle aches due to statin Other Surgeries: Yes: CABG, Cardiac Catheterization, Cardiac Surgery, Colonoscopy, Coronary Stent, EGD, Other (CABG, Cardiac cath in 2015, 04/25/2017) Amputation: No Fractures: No - Social History Smoking Status: Never smoker Tobacco Type: cigarettes Alcohol Intake: never Substance Use Type: denies use Occupational Status: retired Housing: house Household Members: spouse - Psychiatric History Expresses thoughts of harming self/others: None Suicide Plan Description: No Plan Family Hx:: Coronary Artery Disease, Heart Attack, Hypertension ROS Obtained: Yes All systems reviewed & no additional complaints - Constitutional Constitutional: Denies fever(s) - Eyes Eyes: Denies change in vision - ENT Ears, Nose, Mouth, and Throat: Denies sore throat - Cardiovascular Cardiovascular: Denies chest pain, Reports dyspnea - Respiratory Respiratory: Yes cough, No coughing up blood - Gastrointestinal Gastrointestingal: Denies: abdominal pain - Genitourinary Female Genitourinary: Denies hematuria - Musculoskeletal Musculoskeletal: Denies joint pain, Denies joint swelling - Integumentary/Breasts Skin/Breast: Denies rash - Neurologic Neurologic: Denies seizure-like activity Physical Exam - General General appearance: in no apparent distress - Head Head exam: normocephalic - Eye Eye exam: Present: PERRL, EOMI - ENT ENT exam: Present: mucous membranes dry - Neck Neck exam: Present: trachea midline - Respiratory Respiratory exam: Present: other (bilat rhonchi ). Absent: respiratory distress - Cardiovascular Cardiovascular exam: Present: regular rate, systolic murmur, +S4 - Abdominal Exam Abdominal exam: Present: soft - Extremities Exam Extremities exam: Absent: calf tenderness - Neurological Exam Neurological exam: Present: alert, oriented X3, CN II-XII intact - Psychiatric Psychiatric exam: Present: normal affect - Skin Skin exam: Absent: rash
--- NOTE | 2017-10-29 07:25 | Pharmacy Consult Notes ---
[facility] Pharmacy VTE Monitoring - Patient Demographics Admission date: 10/29/17 Report Date: 10/29/17 Time: 07:25 Allergies/Adverse Reactions: Patient Allergies Plmfdpm-Byp-Vvv Reductase Inhibitor Allergy (Verified 10/29/17 02:49) Height: 1.52 m Weight: 56.841 kg Patient Problems: Current Active Problems Community acquired pneumonia (Acute) Renal insufficiency (Acute) Anemia (Acute) - VTE Risk Labs: VTE Related Lab Results Hgb 10.8 g/dL (12.2-16.2) L 10/29/17 03:00 Hct 35.0 % (37.0-47.0) L 10/29/17 03:00 Plt Count 438 K/mm3 (142-424) H 10/29/17 03:00 BUN 27 mg/dL (7-18) H 10/29/17 03:00 Creatinine 1.25 mg/dL (0.55-1.02) H 10/29/17 03:00 Estimated Creat Clear 37 mL/min (0-300) 10/29/17 03:00 Was VTE Risk Assessment Performed: Yes VTE Score: 6 VTE Risk Level: Moderate Risk - Prophylaxis VTE Prophylaxis Ordered?: Yes Types of VTE Prophylaxis: TEDS Knee High, Pharmacological Location of Applied Device: Bilateral Lower Extremeties Pharmacologic Type: Other (BRILINTA ORDERED) - VTE Diagnosis Confirmed Treatment or plan recommended: Continue Current Treatment
--- NOTE | 2017-10-29 07:40 | History & Physical Report ---
*Admission Date: 10/29/17 *Chief complaint: Shortness of breath *History of present illness: 72 yr old female with history of CAD, HTN, DM and gout presented to ED after waking with acute onset shortness of breath, flushing, nausea and had an episode of emisis. Workup in the ED revealed leukocytosis around 18K with right perihilar infiltrate and she was admitted for management with IV antibiotics. She reports vague symptoms of fatigue and mild shortness of breath over the past couple of days but no cough until she woke earlier this morning. She does not smoke and denies any history of chronic lung disease. [facility] History I have reviewed the patient's past medical history: Yes Medical History: Reports:: Congenital Heart Disease, Coronary Artery Disease, Diabetes Mellitus Type 2, Hyperlipidemia, Hypertension, Myocardial Infarction Denies:: Cancer, Diabetes Mellitus Type 1, MRSA Other Medical History: Reports: Anemia, Cataracts Other Surgeries: Yes: CABG, Cardiac Catheterization, Cardiac Surgery, Colonoscopy, Coronary Stent, EGD, Other (CABG, Cardiac cath in 2015, 04/25/2017) Amputation: No Fractures: No - *Social History Educational Level: Completed High School Smoking Status: Former smoker Tobacco Type: cigarettes # Packs/Day (cigarettes): 1 #Yrs smoked (if former smoker): 35 Smoking End Date: 2005 Alcohol Intake: never Substance Use Type: denies use Occupational Status: retired Housing: house Household Members: spouse - Psychiatric History Expresses thoughts of harming self/others: None Suicide Plan Description: No Plan *Family Hx:: Coronary Artery Disease, Heart Attack, Hypertension Review of Systems - Review of Systems Review of systems:: pertinent systems reviewed and negative unless documented below - Constitutional Reports fatigue, Reports fever(s) - *Cardiovascular Reports shortness of breath, Denies chest pain, Denies generalized swelling - *Respiratory Reports cough, Denies change in phlegm color - *Gastrointestinal Reports abdominal pain, Reports nausea, Reports vomiting Comments: left side - *Neurologic Denies seizure-like activity - Psychiatric Reports anxiety - Endocrine Reports flushing Meds Home Medications Medication Instructions Recorded Confirmed Type aspirin 81 mg tablet,delayed 81 mg PO DAILY 05/22/17 10/29/17 History release buspirone 10 mg tablet 10 mg PO TID 05/22/17 10/29/17 History multivitamin tablet 1 tab PO DAILY 05/22/17 10/29/17 History Calcium Carbonate 500 mg PO BID 09/07/17 10/29/17 History Carvedilol [Carvedilol 25mg Tab] 25 mg PO BID 09/07/17 10/29/17 History Colchicine 0.6 mg PO BID 09/07/17 10/29/17 History Fluoxetine HCl [Prozac] 20 mg PO DAILY 09/07/17 10/29/17 History Furosemide [Lasix 40mg tablet] 40 mg PO BID 09/07/17 10/29/17 History Ticagrelor [Brilinta 90mg Tablet] 90 mg PO BID 09/07/17 10/29/17 History Metformin HCl 1,000 mg PO BID 10/29/17 10/29/17 History Allergies Allergy/AdvReac Type Severity Reaction Status Date / Time Qzjkbcl-Gxs-Ien Reductase Allergy Verified 10/29/17 02:49 Inhibitor Exam Vital signs and Labs for Last 24 Hours: Temp Pulse Resp BP Pulse Ox 99.5 F 114 H 20 141/71 90 L 10/29/17 04:55 10/29/17 05:11 10/29/17 04:55 10/29/17 04:55 10/29/17 05:11 Laboratory Results - last 24 hr 10/29/17 03:00: WBC 18.1 H, RBC 3.81 L, Hgb 10.8 L, Hct 35.0 L, MCV 91.7, MCH 28.3, MCHC 30.9 L, RDW 14.3, Plt Count 438 H, MPV 7.5, Neut % (Auto) 84.2 H, Lymph % (Auto) 8.5 L, [place] % (Auto) 5.4, Eos % (Auto) 1.6, Baso % (Auto) 0.3, Neut # (Auto) 15.2 H, Lymph # (Auto) 1.5, [place] # (Auto) 1.0, Eos # (Auto) 0.3, Baso # (Auto) 0.1, Total Counted 100, Neutrophils % (Manual) 80 H, Band Neutrophils % 7.0, Lymphocytes % (Manual) 9 L, Monocytes % (Manual) 2, Eosinophils % (Manual) 2, Platelet Estimate Normal, Hypochromasia 1+, Rouleaux 2 + 10/29/17 03:00: Sodium 138, Potassium 3.6, Chloride 99, Carbon Dioxide 29, Anion Gap 13.6, BUN 27 H, Creatinine 1.25 H, Estimated Creat Clear 37, Estimated GFR 42 L, Est GFR ( Amer) 51 L, Glucose 180 H, Calcium 8.8, Troponin I 0.02 10/29/17 03:00: B-Natriuretic Peptide 1730 H 10/29/17 03:55: Lactic Acid 2.0 10/29/17 03:55: Urine Color Yellow, Urine Appearance Clear, Urine pH 6.0, Ur Specific [place] 1.010, Urine Protein 1+, Urine Glucose (UA) Negative, Urine Ketones Negative, Urine Blood Negative, Urine Nitrate Negative, Urine Bilirubin Negative, Urine Urobilinogen 0.2, Ur Leukocyte Esterase Negative, Urine WBC 3-5 , Ur Squamous Epith Cells 5-10 10/29/17 05:00: Troponin I 0.06 I & O for Last 24 hours: Intake & Output 10/26/17 10/27/17 10/28/17 10/29/17 11:59 11:59 11:59 11:59 Intake Total 1270 / 1270 Balance 1270 / 1270 Weight 125 lb 5 oz H&P: Result - Labs Labs: Short CBC 10/29/17 Range/Units 03:00 WBC 18.1 H (4.8-10.8) K/mm3 Hgb 10.8 L (12.2-16.2) g/dL Hct 35.0 L (37.0-47.0) % Plt Count 438 H (142-424) K/mm3 BMP 10/29/17 03:00 Sodium 138 Potassium 3.6 Chloride 99 Carbon Dioxide 29 BUN 27 H Creatinine 1.25 H Glucose 180 H Calcium 8.8 Cardiac Enzymes 10/29/17 10/29/17 Range/Units 03:00 05:00 Troponin I 0.02 0.06 (0.00-0.06) ng/ml Urine 10/29/17 Range/Units 03:55 Urine Color Yellow (Yellow) Urine Appearance Clear (Clear) Urine pH 6.0 (5.0-8.5) Ur Specific [place] 1.010 (1.005-1.030) Urine Protein 1+ (Negative) Urine Glucose (UA) Negative (Negative) - Impressions right perihilar infiltrate Assessment and Plan (1) Community acquired pneumonia Current visit: Yes Status: Acute Qualifiers: Laterality: right Category: Medical Code(s): J18.9 - Pneumonia, unspecified organism (2) Leukocytosis Current visit: Yes Status: Acute Category: Medical Code(s): D72.829 - Elevated white blood cell count, unspecified (3) Anemia Current visit: Yes Status: Chronic Qualifiers: Anemia type: unspecified type Qualified Code(s): D64.9 - Anemia, unspecified Category: Medical Code(s): D64.9 - Anemia, unspecified (4) Renal insufficiency Current visit: Yes Status: Chronic Category: Medical Code(s): N28.9 - Disorder of kidney and ureter, unspecified (5) Diabetes mellitus type 2 in nonobese Current visit: Yes Status: Chronic Category: Medical Code(s): E11.9 - Type 2 diabetes mellitus without complications - Assessment and plan all Dx Assessment and Plan for all problems:: community acquired protocol with ceftriaxone and azithromycin, sputum and blood cultures pending renal function and anemia are at baseline for patient, monitor during admission for any acute changes urinalysis negative for evidence of acute infection start pantoprazole for GI prophylaxis and JENNY hose for DVT prophylaxis diabetic diet
--- NOTE | 2017-10-29 14:48 | Consult Report ---
History of Present Illness Consult date: 10/29/17 Requesting physician: Wayne Miles Consult reason: shortness of breath Chief complaint: SOA Additional Medical History:: 1. CAD A. [place]/CABG, 2005, [facility], Dr. Joaquin Martinez B. NSTEMI, 07/2015, BTEO to SVG to Cx, BETO to LAD via CHAVEZ. LV aneurysm noted with EF 42% by resting myoview. ASA and Brilinta started. BMS to right renal artery. Chronically occluded left renal artery. C. CM with EF about 30% by echo, 11/2015. D. LHC, 11/23/2015, revealing multivessel disease with severe CM with EF 15-20 %. E. Multivessel stenting, 11/2015, with placement of LifeVest. F. Inferior STEMI, 04/25/2017, Acute ST elevation myocardial infarction involving the saphenous vein graft to the circumflex artery. Successful thrombectomy and reconstruction of the entire vein graft going to the circumflex artery 100% occlusion reduced to 0% with 4 drug-eluting stents in the vein graft. Critical disease in the left internal mammary artery and koi LAD. Successful stenting of the left internal mammary artery critical disease reduced to 0% with 1 drug-eluting stent. Successful angioplasty of the koi left internal mammary artery 99% stenosis reduced to 0% with plain old balloon angioplasty (POBA). LVEF 35-40% with LVEDP of 30 mm Hg. 2. Diabetes mellitus 3. Tobacco use discontinued 2006 one pack per day since age 17 4. Hyperlipidemia, intolerant of statins due to myalgias and muscular disorder 5. Muscular disorder felt related to use of statin 6. Remote history of CVA 7. 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 Hypertension A. Echo, 04/2016, Moderately enlarged left atrium, normal left ventricular size, reduced left ventricular systolic function, visually estimated ejection fraction 40% with the multiple segmental wall motion abnormality described above. Moderate to severe mitral and moderate tricuspid regurgitation, calculated right ventricular systolic pressure is 60 mmHg consistent with moderate pulmonary hypertension. No significant pericardial effusion noted 9. Recurrent anemia with blood transfusion, 2015, per patient 10. Renal Artery stenosis A. Chronic left renal artery occlusion B. Right renal artery Bare Metal Stent, placed, 07/2015 11. Chronic kidney disease, stage II with GFR 42 creatinine 1.2, 10/2017 A. History of acute renal failure and hyperkalemia (8.9) with subsequent ventricular tachycardia in 2016. Possibly related to CHRIS inhibitor therapy. History of present illness: 72 yr old female with history of CAD, HTN, DM and gout presented to ED after waking with acute onset shortness of breath, flushing, nausea and had an episode of emesis. Workup in the ED revealed leukocytosis around 18K with right perihilar infiltrate and she was admitted for management with IV antibiotics. She reports vague symptoms of fatigue and mild shortness of breath over the past couple of days but no cough until she woke earlier this morning. She does not smoke and denies any history of chronic lung disease. The above per KYLEE Singh, for Dr. Miles. Patient denies any exertional chest pain or change in shortness of breath recently. She has a adjustable bed and denies any increased orthopnea recently. She denies any lower extremity edema. Cardiology consulted for elevated troponins. Patient's EKG shows sinus rhythm at [address]-T abnormalities inferolaterally with some anterior changes suggestive of ischemia. [facility] History Medical History: Reports:: Congenital Heart Disease, Coronary Artery Disease, Diabetes Mellitus Type 2, Hyperlipidemia, Hypertension, Myocardial Infarction Denies:: Cancer, Diabetes Mellitus Type 1, MRSA Other Medical History: Reports: Anemia, Cataracts Other Surgeries: Yes: CABG, Cardiac Catheterization, Cardiac Surgery, Colonoscopy, Coronary Stent, EGD, Other (CABG, Cardiac cath in 2016, 04/25/2017) Amputation: No Fractures: No - *Social History Educational Level: Completed High School Smoking Status: Former smoker Tobacco Type: cigarettes # Packs/Day (cigarettes): 1 #Yrs smoked (if former smoker): 35 Smoking End Date: 2005 Alcohol Intake: never Substance Use Type: denies use Occupational Status: retired Housing: house Household Members: spouse - Psychiatric History Expresses thoughts of harming self/others: None Suicide Plan Description: No Plan *Family Hx:: Coronary Artery Disease, Heart Attack, Hypertension Meds Home Medications Medication Instructions Recorded Confirmed Type aspirin 81 mg tablet,delayed 81 mg PO DAILY 05/22/17 10/29/17 History release buspirone 10 mg tablet 10 mg PO TID 05/22/17 10/29/17 History multivitamin tablet 1 tab PO DAILY 05/22/17 10/29/17 History Calcium Carbonate 500 mg PO BID 09/07/17 10/29/17 History Carvedilol [Carvedilol 25mg Tab] 25 mg PO BID 09/07/17 10/29/17 History Colchicine 0.6 mg PO BID 09/07/17 10/29/17 History Fluoxetine HCl [Prozac] 20 mg PO DAILY 09/07/17 10/29/17 History Furosemide [Lasix 40mg tablet] 40 mg PO DAILY 09/07/17 10/29/17 History Ticagrelor [Brilinta 90mg Tablet] 90 mg PO BID 09/07/17 10/29/17 History Metformin HCl 1,000 mg PO BID 10/29/17 10/29/17 History Allergies Allergy/AdvReac Type Severity Reaction Status Date / Time Tlnasnc-[id number]-Cxn Reductase Allergy Verified 10/29/17 02:49 Inhibitor Review of Systems - *Cardiovascular Reports chest pain, Reports shortness of breath - *Respiratory Reports shortness of breath - *Gastrointestinal Denies abdominal pain - *Genitourinary Denies difficulty urinating - *Neurologic Denies seizure-like activity Exam Vital signs and Labs for Last 24 Hours: Temp Pulse Resp BP Pulse Ox 98.7 F 92 H 18 139/63 95 10/29/17 11:42 10/29/17 14:47 10/29/17 11:42 10/29/17 11:42 10/29/17 11:42 Laboratory Results - last 24 hr 10/29/17 03:00: WBC 18.1 H, RBC 3.81 L, Hgb 10.8 L, Hct 35.0 L, MCV 91.7, MCH 28.3, MCHC 30.9 L, RDW 14.3, Plt Count 438 H, MPV 7.5, Neut % (Auto) 84.2 H, Lymph % (Auto) 8.5 L, [place] % (Auto) 5.4, Eos % (Auto) 1.6, Baso % (Auto) 0.3, Neut # (Auto) 15.2 H, Lymph # (Auto) 1.5, [place] # (Auto) 1.0, Eos # (Auto) 0.3, Baso # (Auto) 0.1, Total Counted 100, Neutrophils % (Manual) 80 H, Band Neutrophils % 7.0, Lymphocytes % (Manual) 9 L, Monocytes % (Manual) 2, Eosinophils % (Manual) 2, Platelet Estimate Normal, Hypochromasia 1+, Rouleaux 2 + 10/29/17 03:00: Sodium 138, Potassium 3.6, Chloride 99, Carbon Dioxide 29, Anion Gap 13.6, BUN 27 H, Creatinine 1.25 H, Estimated Creat Clear 37, Estimated GFR 42 L, Est GFR ( Amer) 51 L, Glucose 180 H, Calcium 8.8, Troponin I 0.02 10/29/17 03:00: B-Natriuretic Peptide 1730 H 10/29/17 03:55: Lactic Acid 2.0 10/29/17 03:55: Urine Color Yellow, Urine Appearance Clear, Urine pH 6.0, Ur Specific [place] 1.010, Urine Protein 1+, Urine Glucose (UA) Negative, Urine Ketones Negative, Urine Blood Negative, Urine Nitrate Negative, Urine Bilirubin Negative, Urine Urobilinogen 0.2, Ur Leukocyte Esterase Negative, Urine WBC 3-5 , Ur Squamous Epith Cells 5-10 10/29/17 05:00: Troponin I 0.06 10/29/17 07:35: Troponin I 0.08 H 10/29/17 10:25: Troponin I 0.14 H 10/29/17 11:26: POC Glucose 300 H I & O for Last 24 hours: Intake & Output 10/27/17 10/28/17 10/29/17 10/30/17 11:59 11:59 11:59 11:59 Intake Total 1270 / 1270 Balance 1270 / 1270 Weight 125 lb 5.007 oz - *Routine Neck Exam Absent: JVD, carotid bruit - *Routine Respiratory Exam Present: decreased breath sounds, CTA bilaterally - *Routine Cardiovascular Exam Present: RRR, murmur. Absent: gallop, rubs - *Routine Abdominal Exam Present: soft. Absent: tenderness - *Routine Extremities Exam Absent: edema - *Routine Neurological Exam Present: alert, oriented X3, moving all extremities Assessment and Plan (1) NSTEMI (non-ST elevated myocardial infarction) Current visit: Yes Status: Acute Category: Medical Code(s): I21.4 - Non- ST elevation (NSTEMI) myocardial infarction (2) Community acquired pneumonia Current visit: Yes Status: Acute Qualifiers: Laterality: right Qualified Code(s): J18.1 - Lobar pneumonia, unspecified organism Category: Medical Code(s): J18.9 - Pneumonia, unspecified organism (3) Leukocytosis Current visit: Yes Status: Acute Category: Medical Code(s): D72.829 - Elevated white blood cell count, unspecified (4) Anemia Current visit: Yes Status: Chronic Qualifiers: Anemia type: unspecified type Qualified Code(s): D64.9 - Anemia, unspecified Category: Medical Code(s): D64.9 - Anemia, unspecified (5) Renal insufficiency Current visit: Yes Status: Chronic Category: Medical Code(s): N28.9 - Disorder of kidney and ureter, unspecified (6) Diabetes mellitus type 2 in nonobese Current visit: Yes Status: Chronic Category: Medical Code(s): E11.9 - Type 2 diabetes mellitus without complications (7) CAD (coronary artery disease) Current visit: Yes Status: Acute Category: Medical Code(s): I25.10 - Atherosclerotic heart disease of k[place] coronary artery without angina pectoris (8) Ischemic cardiomyopathy Current visit: Yes Status: Acute Category: Medical Code(s): I25.5 - Ischemic cardiomyopathy (9) CKD stage 2 due to type 2 diabetes mellitus Current visit: Yes Status: Acute Category: Medical Code(s): E11.22 - Type 2 diabetes mellitus with diabetic chronic kidney disease; N18.2 - Chronic kidney disease, stage 2 (mild) - Assessment and plan all Dx Assessment and Plan for all problems:: 1. Elevated troponins with abnormal EKG consistent with non-ST elevation [place], likely secondary to pneumonia and possible congestive heart failure with elevated BNP although chest x-ray does not show evidence of congestive heart failure. Will obtain a second EKG for comparison. Patient remains on aspirin and Brilinta from her recent STEMI in April 2017 with subsequent coronary stenting. Patient is comfortable at this time. With elevated white count of 18 ,000 would not recommend proceeding with cardiac catheterization at this time since patient is comfortable and stable. Recommend proceeding with cardiac catheterization in 1-2 days or prior to discharge. 2. Will obtain an echocardiogram to evaluate left ventricular ejection fraction with known history of ischemic cardiomyopathy and ejection fraction of about 40%. If LVEF is severely decreased, then will need to consider adding Entresto and monitoring renal and potassium status closely due to history of ARF/ Hyperkalemia in past.
--- NOTE | 2017-10-29 19:37 | Cardiology Report ---
PROCEDURE: 2-D M-mode and color Doppler study INDICATIONS FOR THE TEST: Chest pain COPD Heart Murmur Tobacco Smoking+ Palpitations Fatigue Syncope Edema Hypertension+Diabetes Mellitus Rheumatic Fever SOB+CHASE Obesity Hyperlipidemia+ Family History HD Additional History OLD VT, CABG, LV ANEURYSM WITH EF 0F 40% ON MYOVIEW PATIENT INFORMATION HEIGHT: 59 139/63 WEIGHT:125 GENDER: Female B/P:139/63 2-D/M-MODE INTERPRETATION: 2-D MEASUREMENTS OBSERVED VALUES IN CMS Right Ventricular Dimension (RVDd) 2.2 Interventricular Septum (Thickness)(IVsd) 1.1 Left Ventricular Internal Dimensions(LVIDd) 5.7 Left Ventricular Posterior Wall (Thickness)(LVPWd) 1.3 Aortic Root 2.8 Aortic Cusp Separation 1.5 Left Atrial Dimensions (LAD) 5.0 2D 1. Left atrium is moderately enlarged, left ventricle is mildly dilated, there is severely reduced left ventricular systolic function, visually estimated ejection fraction of 20-25%, there is marked hypokinesis involving mid to distal septum, anterior, anteroapical and apical and inferior apical and inferobasal wall. 2. The right atrium and right ventricle are normal size and contractility. 3. The aortic valve is minimally thickened and fibrosed. 4. The mitral and tricuspid valve leaflets are minimally thickened. 5. The pulmonic valve is poorly visualized. 6. No significant pericardial effusion noted. DOPPLER INTERROGATION: Doppler interrogation of the aortic, mitral and tricuspid valvular presence of severe mitral and mild tricuspid regurgitation, calculated right ventricular systolic pressure is 62 mmHg consistent with moderate pulmonary hypertension. Inferior vena cava is dilated without significant inspiratory collapse. CONCLUSION: 1. Moderately enlarged left atrium, mildly dilated left ventricle, severely reduced left ventricular systolic function, visually estimated ejection fraction of 20-25% with multiple segmental wall motion abnormality as described above. 2. Severe mitral and mild tricuspid regurgitation, calculated right ventricular systolic pressure is 62 mm of grade consistent with the moderate pulmonary hypertension, inferior vena cava is dilated without significant inspiratory collapse. 3. No significant pericardial effusion noted.
[2017-10-30 06:42] LABS: Basophils % 0.2 % (0.1-2.0); Eosinophils # 0.1 K/mm3 (0.0-0.4); Eosinophils % 0.5 % (0.1-12.0); Hematocrit 28.8 % (37.0-47.0); Hemoglobin 9.2 g/dL (12.2-16.2); Lymphocytes # 0.7 K/mm3 (0.7-4.5); Lymphocytes % 4.2 K/mm3 (10-50); Mean Corpuscular HGB Conc 31.9 g/dL (31.8-35.4); Mean Corpuscular Hemoglobin 29.2 pg (27.0-31.2); Mean Corpuscular Volume 91.6 fl (81-99); Mean Platelet Volume 8.9 fl (7.4-10.4); Monocytes # 0.7 K/mm3 (0.1-1.0); Monocytes % 4.6 % (1.7-9.3); Neutrophils # 14.3 K/mm3 (1.8-7.8); Neutrophils % 90.5 % (37.0-80.0); Platelet Count 329 K/mm3 (142-424); Red Blood Count 3.15 M/mm3 (4.20-5.40); Red Cell Distribution Width 14.5 % (11.5-17.5); White Blood Count 15.8 K/mm3 (4.8-10.8)
[2017-10-30 07:11] LABS: Anion Gap 15.9 mEq/L (5-15); Calcium 8.8 mg/dL (8.5-10.1); Potassium 3.9 mmoL/L (3.5-5.1)
[2017-10-30 07:42] LABS: Lymphocytes % 1 % (10-50); Monocytes % 2 % (2-9); Neutrophils % 97 % (42-76); RBC Morphology Normal; Total Cells Counted 100
--- NOTE | 2017-10-30 08:14 | Progress Note ---
Internal Medicine - PN: Subj *Date: 10/30/17 *Time: 08:22 Interval history: Patient feels significantly better. She continues to have a nonproductive cough. Alert and oriented x3. Rate and rhythm regular. + murmur. No LE edema. Lung sounds diminished bilateral bases. Abdomen soft and nontender. Normoactive bowel sounds Exam Vital signs and Labs for Last 24 Hours: Temp Pulse Resp BP Pulse Ox 98.2 F 106 H 20 147/77 96 10/30/17 07:17 10/30/17 07:17 10/30/17 07:17 10/30/17 07:17 10/30/17 07:17 Laboratory Results - last 24 hr 10/29/17 10:25: Troponin I 0.14 H 10/29/17 11:26: POC Glucose 300 H 10/29/17 16:00: POC Glucose 254 H 10/29/17 20:15: POC Glucose 228 H 10/30/17 05:59: POC Glucose 194 H 10/30/17 06:30: WBC 15.8 H, RBC 3.15 L, Hgb 9.2 L, Hct 28.8 L, MCV 91.6, MCH 29.2, MCHC 31.9, RDW 14.5, Plt Count 329, MPV 8.9, Neut % (Auto) 90.5 H, Lymph % (Auto) 4.2 L, [place] % (Auto) 4.6, Eos % (Auto) 0.5, Baso % (Auto) 0.2, Neut # ( Auto) 14.3 H, Lymph # (Auto) 0.7, [place] # (Auto) 0.7, Eos # (Auto) 0.1, Baso # ( Auto) 0.0, Total Counted 100, Neutrophils % (Manual) 97 H, Lymphocytes % (Manual ) 1 L, Monocytes % (Manual) 2, Platelet Estimate Normal, RBC Morphology Normal 10/30/17 06:30: Sodium 137, Potassium 3.9, Chloride 100, Carbon Dioxide 25, Anion Gap 15.9 H, BUN 37 H D, Creatinine 1.47 H, Estimated Creat Clear 31, Estimated GFR 35 L, Est GFR ( Amer) 42 L, Glucose 197 H, Calcium 8.8 I & O for Last 24 hours: Intake & Output 10/27/17 10/28/17 10/29/17 06/12/18 11:59 11:59 11:59 11:59 Intake Total 2170 / 2170 450 / 450 Output Total 1000 / 1000 1250 / 1250 Balance 1170 / 1170 -800 / -800 Weight 125 lb 5.007 oz 126 lb 7 oz Microbiology Reports for the Last 24 Hours: Microbiology 10/29/17 03:55 Blood Blood Culture - Preliminary Assessment and Plan (1) NSTEMI (non-ST elevated myocardial infarction) Current visit: Yes Status: Acute Category: Medical Code(s): I21.4 - Non- ST elevation (NSTEMI) myocardial infarction (2) Community acquired pneumonia Current visit: Yes Status: Acute Qualifiers: Laterality: right Qualified Code(s): J18.1 - Lobar pneumonia, unspecified organism Category: Medical Code(s): J18.9 - Pneumonia, unspecified organism (3) Leukocytosis Current visit: Yes Status: Acute Category: Medical Code(s): D72.829 - Elevated white blood cell count, unspecified (4) Anemia Current visit: Yes Status: Chronic Qualifiers: Anemia type: unspecified type Qualified Code(s): D64.9 - Anemia, unspecified Category: Medical Code(s): D64.9 - Anemia, unspecified (5) Renal insufficiency Current visit: Yes Status: Chronic Category: Medical Code(s): N28.9 - Disorder of kidney and ureter, unspecified (6) Diabetes mellitus type 2 in nonobese Current visit: Yes Status: Chronic Category: Medical Code(s): E11.9 - Type 2 diabetes mellitus without complications (7) CAD (coronary artery disease) Current visit: Yes Status: Acute Category: Medical Code(s): I25.10 - Atherosclerotic heart disease of [place] coronary artery without angina pectoris (8) Ischemic cardiomyopathy Current visit: Yes Status: Acute Category: Medical Code(s): I25.5 - Ischemic cardiomyopathy (9) CKD stage 2 due to type 2 diabetes mellitus Current visit: Yes Status: Acute Category: Medical Code(s): E11.22 - Type 2 diabetes mellitus with diabetic chronic kidney disease; N18.2 - Chronic kidney disease, stage 2 (mild) - Assessment and plan all Dx Assessment and Plan for all problems:: Echo showed moderately enlarged left atrium, mildly dilated left ventricle, severely reduced LV systolic function with EF 20-25%. There are multiple segmental wall motion abnormalities noted. Patient has severe mitral regurg and RVSP is elevated at 62 which is c/w moderate pulmonary HTN. Patient is awaiting LHC and will likely need AICD placement. WBC has slightly improved, noted at 15.8 this morning. LHC on hold due to leukocytosis and pneumonia. Plan to proceed with cath in 1-2 days pending blood cultures.
--- NOTE | 2017-10-30 13:30 | Progress Note ---
Subjective Date: 10/30/17 Time: 08:00 Principal diagnosis: Cardiomyopathy, NSTEMI Interval history: 72 yo WF in bed in NAD. Denies any chest pain. Discussed results of echo and need for AICD and cardiac cath. Exam Vital signs and Labs for Last 24 Hours: Temp Pulse Resp BP Pulse Ox 98.2 F 94 H 20 147/77 96 10/30/17 07:17 10/30/17 12:40 10/30/17 07:17 10/30/17 07:17 10/30/17 07:17 Laboratory Results - last 24 hr 10/29/17 16:00: POC Glucose 254 H 10/29/17 20:15: POC Glucose 228 H 10/30/17 05:59: POC Glucose 194 H 10/30/17 06:30: WBC 15.8 H, RBC 3.15 L, Hgb 9.2 L, Hct 28.8 L, MCV 91.6, MCH 29.2, MCHC 31.9, RDW 14.5, Plt Count 329, MPV 8.9, Neut % (Auto) 90.5 H, Lymph % (Auto) 4.2 L, [place] % (Auto) 4.6, Eos % (Auto) 0.5, Baso % (Auto) 0.2, Neut # ( Auto) 14.3 H, Lymph # (Auto) 0.7, [place] # (Auto) 0.7, Eos # (Auto) 0.1, Baso # ( Auto) 0.0, Total Counted 100, Neutrophils % (Manual) 97 H, Lymphocytes % (Manual ) 1 L, Monocytes % (Manual) 2, Platelet Estimate Normal, RBC Morphology Normal 10/30/17 06:30: Sodium 137, Potassium 3.9, Chloride 100, Carbon Dioxide 25, Anion Gap 15.9 H, BUN 37 H D, Creatinine 1.47 H, Estimated Creat Clear 31, Estimated GFR 35 L, Est GFR ( Amer) 42 L, Glucose 197 H, Calcium 8.8 10/30/17 10:49: POC Glucose 264 H I & O for Last 24 hours: Intake & Output 10/28/17 10/29/17 10/30/17 10/31/17 11:59 11:59 11:59 11:59 Intake Total 2170 / 2170 450 / 450 Output Total 1000 / 1000 1250 / 1250 Balance 1170 / 1170 -800 / -800 Weight 125 lb 5.007 oz 126 lb 7 oz Microbiology Reports for the Last 24 Hours: Microbiology 10/29/17 03:55 Blood Blood Culture - Preliminary - *Routine Neck Exam Absent: JVD, carotid bruit - *Routine Respiratory Exam Present: decreased breath sounds, CTA bilaterally - *Routine Cardiovascular Exam Present: RRR, murmur. Absent: gallop, rubs - *Routine Extremities Exam Absent: edema - *Routine Neurological Exam Present: alert, oriented X3, moving all extremities Progress Note: A&P (1) NSTEMI (non-ST elevated myocardial infarction) Status: Acute Current Visit: Yes (2) Community acquired pneumonia Status: Acute Current Visit: Yes (3) Leukocytosis Status: Acute Current Visit: Yes (4) Anemia Status: Chronic Current Visit: Yes (5) Renal insufficiency Status: Chronic Current Visit: Yes (6) Diabetes mellitus type 2 in nonobese Status: Chronic Current Visit: Yes (7) CAD (coronary artery disease) Status: Acute Current Visit: Yes (8) Ischemic cardiomyopathy Status: Acute Current Visit: Yes (9) CKD stage 2 due to type 2 diabetes mellitus Status: Acute Current Visit: Yes Assessment and Plan for All Diagnoses:: WBC still elevated but improved. Continue Abx for pneumonia. Will postpone cardiac cath for now. Likely the elevated troponins are due to right heart strain from pneumonia and elevated BNP/CHF. Echo shows severe CM with EF of 20-25% with severe MR. Pt has had recurrent CM in past which improved with CHRIS/ARB but developed acute renal failure and hyperkalemia with V. tach which resolved with medication changes. Would not recommend restarting either CHRIS or ARB or Entresto at this time. Pt is a candidate for AICD and would recommend proceeding with implant when WBC has improved. After AICD implant then would consider cardiac cath. Continue current meds at this time and will tentatively plan for AICD this Sunday if WBC back to normal.
[2017-10-31 07:15] LABS: Eosinophils # 0.1 K/mm3 (0.0-0.4); Eosinophils % 0.5 % (0.1-12.0); Lymphocytes # 1.2 K/mm3 (0.7-4.5); Lymphocytes % 8.8 K/mm3 (10-50); Mean Corpuscular HGB Conc 31.2 g/dL (31.8-35.4); Mean Corpuscular Hemoglobin 28.9 pg (27.0-31.2); Mean Corpuscular Volume 92.6 fl (81-99); Mean Platelet Volume 8.9 fl (7.4-10.4); Monocytes # 0.7 K/mm3 (0.1-1.0); Monocytes % 5.2 % (1.7-9.3); Neutrophils # 12.3 K/mm3 (1.8-7.8); Neutrophils % 85.6 % (37.0-80.0); Platelet Count 355 K/mm3 (142-424); Red Blood Count 3.13 M/mm3 (4.20-5.40); Red Cell Distribution Width 14.5 % (11.5-17.5); White Blood Count 14.3 K/mm3 (4.8-10.8)
[2017-10-31 07:16] LABS: Anion Gap 15.1 mEq/L (5-15); Calcium 8.8 mg/dL (8.5-10.1); Potassium 4.1 mmoL/L (3.5-5.1)
[2017-10-31 09:00] LABS: Lymphocytes % 6 % (10-50); Monocytes % 4 % (2-9); Neutrophils % 90 % (42-76); Total Cells Counted 100
[2017-10-31 09:01] LABS: RBC Morphology Normal
--- NOTE | 2017-10-31 09:55 | Progress Note ---
Internal Medicine - PN: Subj *Date: 10/31/17 *Time: 07:45 Interval history: Patient states "I feel pretty good." She had some low grade temps through the night. No chest pain. Has some shortness of breath with exertion. Alert and oriented x 3. Rate and rhythm regular. + murmur. Lung sounds diminished bilateral bases. Abdomen soft and nontender Exam Vital signs and Labs for Last 24 Hours: Temp Pulse Resp BP Pulse Ox 97.6 F 76 18 132/54 98 10/31/17 08:03 10/31/17 08:03 10/31/17 08:03 10/31/17 08:03 10/31/17 08:03 Laboratory Results - last 24 hr 10/30/17 10:49: POC Glucose 264 H 10/30/17 16:20: POC Glucose 197 H 10/30/17 20:21: POC Glucose 190 H 10/31/17 06:24: POC Glucose 230 H 10/31/17 07:00: WBC 14.3 H, RBC 3.13 L, Hgb 9.0 L, Hct 29.0 L, MCV 92.6, MCH 28.9, MCHC 31.2 L, RDW 14.5, Plt Count 355, MPV 8.9, Neut % (Auto) 85.6 H, Lymph % (Auto) 8.8 L, [place] % (Auto) 5.2, Eos % (Auto) 0.5, Baso % (Auto) 0.0 L, Neut # (Auto) 12.3 H, Lymph # (Auto) 1.2, [place] # (Auto) 0.7, Eos # (Auto) 0.1, Baso # (Auto) 0.0, Total Counted 100, Neutrophils % (Manual) 90 H, Lymphocytes % (Manual) 6 L, Monocytes % (Manual) 4, Platelet Estimate Normal, RBC Morphology Normal 10/31/17 07:00: Sodium 139, Potassium 4.1, Chloride 102, Carbon Dioxide 26, Anion Gap 15.1 H, BUN 38 H, Creatinine 1.53 H, Estimated Creat Clear 30, Estimated GFR 33 L, Est GFR ( Amer) 40 L, Glucose 230 H, Calcium 8.8 I & O for Last 24 hours: Intake & Output 10/28/17 10/29/17 10/30/17 10/31/17 11:59 11:59 11:59 11:59 Intake Total 2170 / 2170 450 / 450 240 / 240 Output Total 1000 / 1000 1250 / 1250 Balance 1170 / 1170 -800 / -800 240 / 240 Weight 125 lb 5.007 oz 126 lb 7 oz Microbiology Reports for the Last 24 Hours: Microbiology 10/29/17 03:55 Blood Blood Culture - Preliminary Staphylococcus species Gram Positive Bacilli 10/29/17 03:55 Blood Blood Culture - Preliminary Assessment and Plan (1) NSTEMI (non-ST elevated myocardial infarction) Current visit: Yes Status: Acute Category: Medical Code(s): I21.4 - Non- ST elevation (NSTEMI) myocardial infarction (2) Community acquired pneumonia Current visit: Yes Status: Acute Qualifiers: Laterality: right Qualified Code(s): J18.1 - Lobar pneumonia, unspecified organism Category: Medical Code(s): J18.9 - Pneumonia, unspecified organism (3) Leukocytosis Current visit: Yes Status: Acute Category: Medical Code(s): D72.829 - Elevated white blood cell count, unspecified (4) Anemia Current visit: Yes Status: Chronic Qualifiers: Anemia type: unspecified type Qualified Code(s): D64.9 - Anemia, unspecified Category: Medical Code(s): D64.9 - Anemia, unspecified (5) Renal insufficiency Current visit: Yes Status: Chronic Category: Medical Code(s): N28.9 - Disorder of kidney and ureter, unspecified (6) Diabetes mellitus type 2 in nonobese Current visit: Yes Status: Chronic Category: Medical Code(s): E11.9 - Type 2 diabetes mellitus without complications (7) CAD (coronary artery disease) Current visit: Yes Status: Acute Category: Medical Code(s): I25.10 - Atherosclerotic heart disease of [place] coronary artery without angina pectoris (8) Ischemic cardiomyopathy Current visit: Yes Status: Acute Category: Medical Code(s): I25.5 - Ischemic cardiomyopathy (9) CKD stage 2 due to type 2 diabetes mellitus Current visit: Yes Status: Acute Category: Medical Code(s): E11.22 - Type 2 diabetes mellitus with diabetic chronic kidney disease; N18.2 - Chronic kidney disease, stage 2 (mild) (10) Bacteremia Current visit: Yes Status: Acute Category: Medical Code(s): R78.81 - Bacteremia - Assessment and plan all Dx Assessment and Plan for all problems:: Preliminary blood culture showed staphylococcus, meca not detected. She has had very slow improvement of leukocytosis with WBC 14 today. Add vancomycin. Will place PICC line today. She will need 14 more days of antibiotics pending repeat blood cultures which have been ordered for Sunday. She will need to complete antibiotic therapy and have negative blood cultures prior to LHC or AICD placement.
--- NOTE | 2017-10-31 10:48 | Pharmacy Consult Notes ---
- Pharmacy Consult Date: 10/31/17 Time: 10:45 Referring provider: AVIVA Reason for Consult:: VANCOMYCIN THERAPY FOR POSITIVE STAPH AUREUS BLOOD CULTURES Allergies and ADEs:: Allergies Allergy/AdvReac Type Severity Reaction Status Date / Time [id number] Reductase Allergy Verified 10/29/17 02:49 Inhibitor Home Medications:: Home Medications Medication Instructions Recorded Confirmed Type aspirin 81 mg tablet,delayed 81 mg PO DAILY 05/22/17 10/29/17 History release buspirone 10 mg tablet 10 mg PO TID 05/22/17 10/29/17 History multivitamin tablet 1 tab PO DAILY 05/22/17 10/29/17 History Calcium Carbonate 500 mg PO BID 09/07/17 10/29/17 History Carvedilol [Carvedilol 25mg Tab] 25 mg PO BID 09/07/17 10/29/17 History Colchicine 0.6 mg PO BID 09/07/17 10/29/17 History Fluoxetine HCl [Prozac] 20 mg PO DAILY 09/07/17 10/29/17 History Furosemide [Lasix 40mg tablet] 40 mg PO DAILY 09/07/17 10/29/17 History Ticagrelor [Brilinta 90mg Tablet] 90 mg PO BID 09/07/17 10/29/17 History Metformin HCl 1,000 mg PO BID 10/29/17 10/29/17 History Height: 1.52 m Weight: 57.351 kg Laboratory Results:: Laboratory Results - last 24 hr 10/30/17 10:49: POC Glucose 264 H 10/30/17 16:20: POC Glucose 197 H 10/30/17 20:21: POC Glucose 190 H 10/31/17 06:24: POC Glucose 230 H 10/31/17 07:00: WBC 14.3 H, RBC 3.13 L, Hgb 9.0 L, Hct 29.0 L, MCV 92.6, MCH 28.9, MCHC 31.2 L, RDW 14.5, Plt Count 355, MPV 8.9, Neut % (Auto) 85.6 H, Lymph % (Auto) 8.8 L, Tate % (Auto) 5.2, Eos % (Auto) 0.5, Baso % (Auto) 0.0 L, Neut # (Auto) 12.3 H, Lymph # (Auto) 1.2, Tate # (Auto) 0.7, Eos # (Auto) 0.1, Baso # (Auto) 0.0, Total Counted 100, Neutrophils % (Manual) 90 H, Lymphocytes % (Manual) 6 L, Monocytes % (Manual) 4, Platelet Estimate Normal, RBC Morphology Normal 10/31/17 07:00: Sodium 139, Potassium 4.1, Chloride 102, Carbon Dioxide 26, Anion Gap 15.1 H, BUN 38 H, Creatinine 1.53 H, Estimated Creat Clear 30, Estimated GFR 33 L, Est GFR ( Amer) 40 L, Glucose 230 H, Calcium 8.8 Medical History: Reports:: Congenital Heart Disease, Coronary Artery Disease, Diabetes Mellitus Type 2, Hyperlipidemia, Hypertension, Myocardial Infarction Denies:: Cancer, Diabetes Mellitus Type 1, MRSA Assessment and Plan (1) NSTEMI (non-ST elevated myocardial infarction) Current visit: Yes Status: Acute Category: Medical Code(s): I21.4 - Non- ST elevation (NSTEMI) myocardial infarction (2) Community acquired pneumonia Current visit: Yes Status: Acute Qualifiers: Laterality: right Qualified Code(s): J18.1 - Lobar pneumonia, unspecified organism Category: Medical Code(s): J18.9 - Pneumonia, unspecified organism (3) Leukocytosis Current visit: Yes Status: Acute Category: Medical Code(s): D72.829 - Elevated white blood cell count, unspecified (4) Anemia Current visit: Yes Status: Chronic Qualifiers: Anemia type: unspecified type Qualified Code(s): D64.9 - Anemia, unspecified Category: Medical Code(s): D64.9 - Anemia, unspecified (5) Renal insufficiency Current visit: Yes Status: Chronic Category: Medical Code(s): N28.9 - Disorder of kidney and ureter, unspecified (6) Diabetes mellitus type 2 in nonobese Current visit: Yes Status: Chronic Category: Medical Code(s): E11.9 - Type 2 diabetes mellitus without complications (7) CAD (coronary artery disease) Current visit: Yes Status: Acute Category: Medical Code(s): I25.10 - Atherosclerotic heart disease of [place] coronary artery without angina pectoris (8) Ischemic cardiomyopathy Current visit: Yes Status: Acute Category: Medical Code(s): I25.5 - Ischemic cardiomyopathy (9) CKD stage 2 due to type 2 diabetes mellitus Current visit: Yes Status: Acute Category: Medical Code(s): E11.22 - Type 2 diabetes mellitus with diabetic chronic kidney disease; N18.2 - Chronic kidney disease, stage 2 (mild) (10) Bacteremia Current visit: Yes Status: Acute Category: Medical Code(s): R78.81 - Bacteremia - Assessment and plan all Dx Assessment and Plan for all problems:: WILL START VANCOMYCIN 1000MG IV EVERY 24 HOURS. PHARMACY WILL FOLLOW UP DAILY AND ADJUST NECESSARY BASED ON PATIENT'S RENAL FUNCTION AND THERAPEUTIC LEVELS. THANK YOU.
--- NOTE | 2017-10-31 16:05 | Progress Note ---
Subjective Date: 10/31/17 Time: 16:02 Principal diagnosis: Cardiomyopathy, NSTEMI Interval history: 72 yo WF in bed in NAD. No chest pains. Breathing about the same. Pt to require 2 wks of antibiotics for treatment of infection. Exam Vital signs and Labs for Last 24 Hours: Temp Pulse Resp BP Pulse Ox 99.0 F 96 H 18 126/47 93 L 10/31/17 11:08 10/31/17 13:09 10/31/17 11:08 10/31/17 11:08 10/31/17 11:08 Laboratory Results - last 24 hr 10/30/17 16:20: POC Glucose 197 H 10/30/17 20:21: POC Glucose 190 H 10/31/17 06:24: POC Glucose 230 H 10/31/17 07:00: WBC 14.3 H, RBC 3.13 L, Hgb 9.0 L, Hct 29.0 L, MCV 92.6, MCH 28.9, MCHC 31.2 L, RDW 14.5, Plt Count 355, MPV 8.9, Neut % (Auto) 85.6 H, Lymph % (Auto) 8.8 L, [place] % (Auto) 5.2, Eos % (Auto) 0.5, Baso % (Auto) 0.0 L, Neut # (Auto) 12.3 H, Lymph # (Auto) 1.2, [place] # (Auto) 0.7, Eos # (Auto) 0.1, Baso # (Auto) 0.0, Total Counted 100, Neutrophils % (Manual) 90 H, Lymphocytes % (Manual) 6 L, Monocytes % (Manual) 4, Platelet Estimate Normal, RBC Morphology Normal 10/31/17 07:00: Sodium 139, Potassium 4.1, Chloride 102, Carbon Dioxide 26, Anion Gap 15.1 H, BUN 38 H, Creatinine 1.53 H, Estimated Creat Clear 30, Estimated GFR 33 L, Est GFR ( Amer) 40 L, Glucose 230 H, Calcium 8.8 10/31/17 10:45: POC Glucose 220 H I & O for Last 24 hours: Intake & Output 10/29/17 10/30/17 10/31/17 11/01/17 11:59 11:59 11:59 11:59 Intake Total 2170 / 2170 450 / 450 240 / 240 360 / 360 Output Total 1000 / 1000 1250 / 1250 600 / 600 Balance 1170 / 1170 -800 / -800 240 / 240 -240 / -240 Weight 125 lb 5.007 oz 126 lb 7 oz 126 lb 7 oz Microbiology Reports for the Last 24 Hours: Microbiology 10/29/17 03:55 Blood Blood Culture - Preliminary Staphylococcus species Gram Positive Bacilli 10/29/17 03:55 Blood Blood Culture - Preliminary - *Routine Respiratory Exam Present: decreased breath sounds. Absent: rales, rhonchi, wheezes - *Routine Cardiovascular Exam Present: RRR, murmur - *Routine Neurological Exam Present: alert, oriented X3, moving all extremities Progress Note: A&P (1) NSTEMI (non-ST elevated myocardial infarction) Status: Acute Current Visit: Yes (2) Community acquired pneumonia Status: Acute Current Visit: Yes (3) Leukocytosis Status: Acute Current Visit: Yes (4) Anemia Status: Chronic Current Visit: Yes (5) Renal insufficiency Status: Chronic Current Visit: Yes (6) Diabetes mellitus type 2 in nonobese Status: Chronic Current Visit: Yes (7) CAD (coronary artery disease) Status: Acute Current Visit: Yes (8) Ischemic cardiomyopathy Status: Acute Current Visit: Yes (9) CKD stage 2 due to type 2 diabetes mellitus Status: Acute Current Visit: Yes (10) Bacteremia Status: Acute Current Visit: Yes Assessment and Plan for All Diagnoses:: Notes reviewed. PICC line placed for antibiotics. Will postpone AICD and cardiac cath until antibiotics finished. Continue lasix due to severe CM and mitral regurgitation. Continue close monitoring of renal function due to history of right renal artery stenosis treated with stenting in 2016. Chronically occluded left renal artery.
--- NOTE | 2017-11-01 07:30 | Progress Note ---
Internal Medicine - PN: Subj *Date: 11/01/17 *Time: 07:27 Interval history: No new events overnight. She does report some mild nausea this morning after getting her IV antibiotics but has not actually had any emisis. + constipation since admission. Also reports shortness of breath when up moving around room but none at rest. No cough and no chest pain. Exam Vital signs and Labs for Last 24 Hours: Temp Pulse Resp BP Pulse Ox 99.0 F 88 16 155/77 95 11/01/17 00:36 11/01/17 06:49 11/01/17 00:36 11/01/17 00:36 11/01/17 00:36 Laboratory Results - last 24 hr 10/31/17 07:00: Total Counted 100, Neutrophils % (Manual) 90 H, Lymphocytes % ( Manual) 6 L, Monocytes % (Manual) 4, Platelet Estimate Normal, RBC Morphology Normal 10/31/17 10:45: POC Glucose 220 H 10/31/17 16:54: POC Glucose 197 H 10/31/17 21:16: POC Glucose 215 H 11/01/17 05:49: POC Glucose 165 H I & O for Last 24 hours: Intake & Output 10/29/17 10/30/17 10/31/17 11/01/17 11:59 11:59 11:59 11:59 Intake Total 2170 / 2170 450 / 450 240 / 240 880 / 880 Output Total 1000 / 1000 1250 / 1250 1950 / 1950 Balance 1170 / 1170 -800 / -800 240 / 240 -1070 / -1070 Weight 125 lb 5.007 oz 126 lb 7 oz 126 lb 7 oz 129 lb 8 oz Microbiology Reports for the Last 24 Hours: Microbiology 10/29/17 03:55 Blood Blood Culture - Final Staphylococcus epidermidis Gram Positive Bacilli Narrative: Pleasant, alert and oriented. Poor dentition, no oral lesions. Oral membranes moist. Heart with RRR. Lungs coarse but clear with equal air movement. Abdomen soft, NT/ND, hyperactive bowel sounds all quadrants. No edema. Diminished pedal pulses. Assessment and Plan (1) NSTEMI (non-ST elevated myocardial infarction) Current visit: Yes Status: Acute Category: Medical Code(s): I21.4 - Non- ST elevation (NSTEMI) myocardial infarction (2) Community acquired pneumonia Current visit: Yes Status: Acute Qualifiers: Laterality: right Qualified Code(s): J18.1 - Lobar pneumonia, unspecified organism Category: Medical Code(s): J18.9 - Pneumonia, unspecified organism (3) Leukocytosis Current visit: Yes Status: Acute Category: Medical Code(s): D72.829 - Elevated white blood cell count, unspecified (4) Anemia Current visit: Yes Status: Chronic Qualifiers: Anemia type: unspecified type Qualified Code(s): D64.9 - Anemia, unspecified Category: Medical Code(s): D64.9 - Anemia, unspecified (5) Renal insufficiency Current visit: Yes Status: Chronic Category: Medical Code(s): N28.9 - Disorder of kidney and ureter, unspecified (6) Diabetes mellitus type 2 in nonobese Current visit: Yes Status: Chronic Category: Medical Code(s): E11.9 - Type 2 diabetes mellitus without complications (7) CAD (coronary artery disease) Current visit: Yes Status: Acute Category: Medical Code(s): I25.10 - Atherosclerotic heart disease of [place] coronary artery without angina pectoris (8) Ischemic cardiomyopathy Current visit: Yes Status: Acute Category: Medical Code(s): I25.5 - Ischemic cardiomyopathy (9) CKD stage 2 due to type 2 diabetes mellitus Current visit: Yes Status: Acute Category: Medical Code(s): E11.22 - Type 2 diabetes mellitus with diabetic chronic kidney disease; N18.2 - Chronic kidney disease, stage 2 (mild) (10) Bacteremia Current visit: Yes Status: Acute Category: Medical Code(s): R78.81 - Bacteremia (11) Staphylococcus epidermidis bacteremia Current visit: Yes Status: Acute Category: Medical Code(s): R78.81 - Bacteremia - Assessment and plan all Dx Assessment and Plan for all problems:: Pre-certification for admission to rehabilitation facility pending. Plan is to discharge on IV antibiotics for a total of 2 weeks and repeat blood cultures prior to undergoing cardiac intervention for her cardiomyopathy. Add miralax daily for constipation.
[2017-11-01 07:31] LABS: Basophils % 0.2 % (0.1-2.0); Eosinophils # 0.3 K/mm3 (0.0-0.4); Eosinophils % 2.6 % (0.1-12.0); Hematocrit 26.3 % (37.0-47.0); Hemoglobin 8.4 g/dL (12.2-16.2); Lymphocytes # 0.9 K/mm3 (0.7-4.5); Lymphocytes % 8.2 K/mm3 (10-50); Mean Corpuscular Hemoglobin 29.8 pg (27.0-31.2); Mean Corpuscular Volume 93.2 fl (81-99); Mean Platelet Volume 8.3 fl (7.4-10.4); Monocytes # 0.6 K/mm3 (0.1-1.0); Monocytes % 5.4 % (1.7-9.3); Neutrophils # 9.1 K/mm3 (1.8-7.8); Neutrophils % 83.6 % (37.0-80.0); Platelet Count 349 K/mm3 (142-424); Red Blood Count 2.82 M/mm3 (4.20-5.40); Red Cell Distribution Width 14.5 % (11.5-17.5); White Blood Count 10.9 K/mm3 (4.8-10.8)
[2017-11-01 07:32] LABS: Albumin Level 2.4 gm/dL (3.4-5.0); Albumin/Globulin Ratio 0.6 (1.1-1.8); Anion Gap 16.5 mEq/L (5-15); Bilirubin,Total 1.1 mg/dL (0.2-1.0); Calcium 8.5 mg/dL (8.5-10.1); Globulin 3.8 gm/dl (1.3-3.2); Potassium 3.5 mmoL/L (3.5-5.1); Total Protein,Serum 6.2 gm/dL (6.4-8.2)
--- NOTE | 2017-11-01 08:27 | Progress Note ---
Subjective Date: 11/01/17 Time: 08:23 Principal diagnosis: Cardiomyopathy, NSTEMI Interval history: No complaints. SOA with exertion, stable. Discussed use of LifeVest to bridge until AICD could be placed and she is wanting to wear it. Exam Vital signs and Labs for Last 24 Hours: Temp Pulse Resp BP Pulse Ox 97.3 F L 91 H 20 132/51 94 L 11/01/17 08:00 11/01/17 08:00 11/01/17 08:00 11/01/17 08:00 11/01/17 08:00 Laboratory Results - last 24 hr 10/31/17 07:00: Total Counted 100, Neutrophils % (Manual) 90 H, Lymphocytes % ( Manual) 6 L, Monocytes % (Manual) 4, Platelet Estimate Normal, RBC Morphology Normal 10/31/17 10:45: POC Glucose 220 H 10/31/17 16:54: POC Glucose 197 H 10/31/17 21:16: POC Glucose 215 H 11/01/17 05:49: POC Glucose 165 H 11/01/17 06:20: Sodium 139, Potassium 3.5, Chloride 102, Carbon Dioxide 24, Anion Gap 16.5 H, BUN 35 H, Creatinine 1.53 H, Estimated Creat Clear 30, Estimated GFR 33 L, Est GFR ( Amer) 40 L, Glucose 224 H, Calcium 8.5, Total Bilirubin 1.1 H, AST 57 H, ALT 60, Alkaline Phosphatase 65, Total Protein 6.2 L, Albumin 2.4 L, Globulin 3.8 H, Albumin/Globulin Ratio 0.6 L 11/01/17 07:15: WBC 10.9 H, RBC 2.82 L, Hgb 8.4 L, Hct 26.3 L, MCV 93.2, MCH 29.8, MCHC 32.0, RDW 14.5, Plt Count 349, MPV 8.3, Neut % (Auto) 83.6 H, Lymph % (Auto) 8.2 L, [place] % (Auto) 5.4, Eos % (Auto) 2.6, Baso % (Auto) 0.2, Neut # ( Auto) 9.1 H, Lymph # (Auto) 0.9, [place] # (Auto) 0.6, Eos # (Auto) 0.3, Baso # ( Auto) 0.0 I & O for Last 24 hours: Intake & Output 10/29/17 10/30/17 10/31/17 11/01/17 11:59 11:59 11:59 11:59 Intake Total 2170 / 2170 450 / 450 240 / 240 880 / 880 Output Total 1000 / 1000 1250 / 1250 1950 / 1950 Balance 1170 / 1170 -800 / -800 240 / 240 -1070 / -1070 Weight 125 lb 5.007 oz 126 lb 7 oz 126 lb 7 oz 129 lb 8 oz Microbiology Reports for the Last 24 Hours: Microbiology 10/29/17 03:55 Blood - Final Not Reportable 10/29/17 03:55 Blood - Final Not Reportable 10/29/17 03:55 Blood - Final Not Reportable 10/29/17 03:55 Blood - Final Not Reportable 10/29/17 03:55 Blood - Final Not Reportable 10/29/17 03:55 Blood Blood Culture - Final Staphylococcus epidermidis Gram Positive Bacilli 10/29/17 03:55 Blood Blood Culture - Preliminary Staphylococcus species - *Routine Respiratory Exam Present: decreased breath sounds. Absent: rhonchi, wheezes - *Routine Cardiovascular Exam Present: RRR, murmur - *Routine Neurological Exam Present: alert, oriented X3, moving all extremities Progress Note: A&P (1) NSTEMI (non-ST elevated myocardial infarction) Status: Acute Current Visit: Yes (2) Community acquired pneumonia Status: Acute Current Visit: Yes (3) Leukocytosis Status: Acute Current Visit: Yes (4) Anemia Status: Chronic Current Visit: Yes (5) Renal insufficiency Status: Chronic Current Visit: Yes (6) Diabetes mellitus type 2 in nonobese Status: Chronic Current Visit: Yes (7) CAD (coronary artery disease) Status: Acute Current Visit: Yes (8) Ischemic cardiomyopathy Status: Acute Current Visit: Yes (9) CKD stage 2 due to type 2 diabetes mellitus Status: Acute Current Visit: Yes (10) Bacteremia Status: Acute Current Visit: Yes (11) Staphylococcus epidermidis bacteremia Status: Acute Current Visit: Yes Assessment and Plan for All Diagnoses:: LifeVest rep has been contacted and will fit patient today, either here prior to leaving or at the [place] [facility]. Continue current meds, including coreg, ASA and brilinta. Follow up in 2 wks to decide on timing of AICD and cardiac cath. Recommend monitoring renal functions closely and adjust lasix as indicated. Will check BNP today.
[2017-11-01 11:42] VITALS: BP 143/90
--- NOTE | 2017-11-01 11:51 | Discharge Summary ---
General - General Admission date:: 10/30/17 Discharge date: 11/01/17 HPI HPI: 72 yr old female with history of CAD, HTN, DM and gout presented to ED after waking with acute onset shortness of breath, flushing, nausea and had an episode of emisis. Workup in the ED revealed leukocytosis around 18K with right perihilar infiltrate and she was admitted for management with IV antibiotics. She reports vague symptoms of fatigue and mild shortness of breath over the past couple of days but no cough until she woke earlier this morning. She does not smoke and denies any history of chronic lung disease. Hospital Course Hospital Course: Empiric treatment for community-acquired pneumonia was started with azithromycin and ceftriaxone. She was not able to produce any sputum despite nebulizer therapy. Preliminary blood cultures indicated staph species and vancomycin IV was added. Final culture today shows staph epi that is sensitive to quinolones and vancomycin. PICC line has been placed without difficulty and she will be discharged with plan for IV Levaquin for 7 days and IV vancomycin for a total of 14 days. Blood cultures will be repeated today before discharge. Her WBC has trended down with noted treatment and she has been afebrile. Please have pharmacist with SNF follow vancomycin dosing. She will need a CBC and BMP next week at SNF. Serial troponins at time of admission became elevated and cardiology was consulted. They recommended medical management for NSTEMI due to her concurrent community-acquired pneumonia. Echo revealed EF 20-25%, cardiomyopathy, and AICD is recommended but this will be addressed as an outpatient after she completes treatment for her bacteremia. They have recommended a LifeVest to bridge her until AICD can be placed. On day of discharge she was feeling well other than some nausea after her IV antibiotics. She also reports constipation so miralax was added. Vitals, labs and exam are stable. She does continue to report shortness of breath with exertion but no chest pain and no cough. [place] be [place] [facility] [place]. She may have PT/OT consult and treatment as tolerated. She will FU with Dr Cain in 2 weeks to make arrangements for AICD and will be followed by our service at [facility]. Objective Vital signs: Temp Pulse Resp BP Pulse Ox 97.3 F L 81 20 143/90 98 11/01/17 11:42 11/01/17 11:42 11/01/17 11:42 11/01/17 11:42 11/01/17 11:42 Narrative: Pleasant female, A&O x 3. Heart with RRR, lungs are coarse but clear. Abdomen is soft, ND/NT, hyperactive bowel sounds. No edema, 1+ pedal pulses. No rashes. She does have poor dentition but no acute oral lesions noted. Results Labs on day of discharge: Labs from last 24 hours 11/01/17 11/01/17 11/01/17 07:15 07:14 06:20 WBC 10.9 H RBC 2.82 L Hgb 8.4 L Hct 26.3 L MCV 93.2 MCH 29.8 MCHC 32.0 RDW 14.5 Plt Count 349 MPV 8.3 Neut % (Auto) 83.6 H Lymph % (Auto) 8.2 L [place] % (Auto) 5.4 Eos % (Auto) 2.6 Baso % (Auto) 0.2 Neut # (Auto) 9.1 H Lymph # (Auto) 0.9 [place] # (Auto) 0.6 Eos # (Auto) 0.3 Baso # (Auto) 0.0 Sodium 139 Potassium 3.5 Chloride 102 Carbon Dioxide 24 Anion Gap 16.5 H BUN 35 H Creatinine 1.53 H Estimated Creat Clear 30 Estimated GFR 33 L Est GFR ( Amer) 40 L Glucose 224 H POC Glucose Calcium 8.5 Total Bilirubin 1.1 H AST 57 H ALT 60 Alkaline Phosphatase 65 B-Natriuretic Peptide 3810 H Total Protein 6.2 L Albumin 2.4 L Globulin 3.8 H Albumin/Globulin Ratio 0.6 L 11/01/17 10/31/17 10/31/17 05:49 21:16 16:54 WBC RBC Hgb Hct MCV MCH MCHC RDW Plt Count MPV Neut % (Auto) Lymph % (Auto) [place] % (Auto) Eos % (Auto) Baso % (Auto) Neut # (Auto) Lymph # (Auto) [place] # (Auto) Eos # (Auto) Baso # (Auto) Sodium Potassium Chloride Carbon Dioxide Anion Gap BUN Creatinine Estimated Creat Clear Estimated GFR Est GFR ( Amer) Glucose POC Glucose 165 H 215 H 197 H Calcium Total Bilirubin AST ALT Alkaline Phosphatase B-Natriuretic Peptide Total Protein Albumin Globulin Albumin/Globulin Ratio Preliminary micro results at discharge 10/29/17 03:55 Blood Culture - Preliminary Blood Staphylococcus species DS: Diagnosis - Discharge Diagnosis (1) NSTEMI (non-ST elevated myocardial infarction) Status: Acute (2) Community acquired pneumonia Status: Acute (3) Leukocytosis Status: Acute (4) Anemia Status: Chronic (5) Renal insufficiency Status: Chronic (6) Diabetes mellitus type 2 in nonobese Status: Chronic (7) CAD (coronary artery disease) Status: Acute (8) Ischemic cardiomyopathy Status: Acute (9) CKD stage 2 due to type 2 diabetes mellitus Status: Acute (10) Bacteremia Status: Acute (11) Staphylococcus epidermidis bacteremia Status: Acute Discharge Plan - Patient Discharge Instructions ACTIVITY: Ambulate as tolerated DIET: cardiac Patient Instructions: Pneumonia-Adult, Kidney Failure, Type 2 Diabetes, Anemia , Peripherally Inserted Central Catheter, Central Line-Associated Bloodstream Infections, Surgical Site Infection - Follow up Plan Follow up with: Warren Cain MD [Staff Physician] - 2 weeks Disposition: [facility] Home Medications: Home Medications Medication Instructions Recorded Confirmed Type aspirin 81 mg tablet,delayed 81 mg PO DAILY 05/22/17 10/29/17 History release buspirone 10 mg tablet 10 mg PO TID 05/22/17 10/29/17 History multivitamin tablet 1 tab PO DAILY 05/22/17 10/29/17 History Calcium Carbonate 500 mg PO BID 09/07/17 10/29/17 History Carvedilol [Carvedilol 25mg Tab] 25 mg PO BID 09/07/17 10/29/17 History Colchicine 0.6 mg PO BID 09/07/17 10/29/17 History Fluoxetine HCl [Prozac] 20 mg PO DAILY 09/07/17 10/29/17 History Furosemide [Lasix 40mg tablet] 40 mg PO DAILY 09/07/17 10/29/17 History Ticagrelor [Brilinta 90mg Tablet] 90 mg PO BID 09/07/17 10/29/17 History Metformin HCl 1,000 mg PO BID 10/29/17 10/29/17 History Prescriptions/Medication Reconciliation: New Pantoprazole Sodium [Protonix 40mg tablet] 40 mg PO HS tablet. Polyethylene Glycol 3350 [Miralax 17gm Packet] 17 gm PO DAILYP PRN powd.pack PRN Reason: Constipation Vits96/Iron Fum/Folic [ MVI w/Iron Tablet] 1 each PO DAILY tablet Vancomycin HCl [Vancomycin 1000mg Adv] 1,000 mg IV 1100 vial.port Levofloxacin/D5w [Levaquin 500mg/100mL Premix IVPB] 500 mg IV Q24H 7 Days piggyback Continue aspirin 81 mg tablet,delayed release 81 mg PO DAILY buspirone 10 mg tablet 10 mg PO TID amlodipine 5 mg tablet 5 mg PO DAILY #90 tab Carvedilol [Carvedilol 25mg Tab] 25 mg PO BID Fluoxetine HCl [Prozac] 20 mg PO DAILY Ticagrelor [Brilinta 90mg Tablet] 90 mg PO BID Furosemide [Lasix 40mg tablet] 40 mg PO DAILY Calcium Carbonate 500 mg PO BID Metformin HCl 1,000 mg PO BID Discontinued multivitamin tablet 1 tab PO DAILY Colchicine 0.6 mg PO BID
== END 2017-11-01 13:58 ==
LOC: ER 02:46 → 2ND 02:46
PROVIDERS: ADMIT Family Medicine; ATTEND Internal Medicine Adolescent Medicine

== ENCOUNTER → 2017-11-03 11:45 | Outpatient (REF) | payer MEDICARE, SELFPAY ==
[2017-11-03 12:45] LABS: Vancomycin,Trough 15.4 mcg/ml (10.0-20.0)
== END ==
LOC: LAB 11:45
PROVIDERS: Visit Provider Internal Medicine Adolescent Medicine
DX: R78.81 Bacteremia (principal); B95.7 Other staphylococcus as the cause of diseases classified elsewhere
CPT/HCPCS: 80202

== ENCOUNTER → 2018-01-01 09:18 | Outpatient (CLI) | payer MEDICARE, SELFPAY ==
--- NOTE | 2018-01-01 09:23 | CA_ITS ---
PROCEDURE: 2-D M-mode and color Doppler study INDICATIONS FOR THE TEST: Chest pain COPD Heart Murmur Tobacco Smoking Palpitations Fatigue Syncope EdemaX HypertensionXDiabetes Mellitus Rheumatic Fever SOB CHASE Obesity HyperlipidemiaX Family History HD Additional History CHF,CM,RECENT STENTS,CAD EF 20-25% 10/29/17 ON LIFE VEST PATIENT INFORMATION HEIGHT:64 WEIGHT:154 GENDER: Female B/P:126/59 2-D/M-MODE INTERPRETATION: 2-D MEASUREMENTS OBSERVED VALUES IN CMS Right Ventricular Dimension (RVDd) 2.5 Interventricular Septum (Thickness)(IVsd) .6 Left Ventricular Internal Dimensions(LVIDd) 6.6 Left Ventricular Posterior Wall (Thickness)(LVPWd) .9 Aortic Root 2.5 Aortic Cusp Separation 1.4 Left Atrial Dimensions (LAD) 3.7 2D 1. Left atrium is moderately enlarged, left ventricle is moderately dilated, severely reduced left ventricular systolic function, visually estimated ejection fraction approximately 25-30%, there is marked hypokinesis involving the mid to distal septum, anterior, apex, anteroapical and inferolateral apical wall. 2. The right atrium and right ventricle are mildly enlarged with normal contractility. 3. The aortic valve is minimally thickened and fibrosed. Leaflet continue to display mobility. 4. The mitral valve has mitral annular calcification, mitral leaflets are minimally thickened. 5. The tricuspid valve is minimally thickened. 6. The pulmonic valve is poorly visualized 7. No significant pericardial effusion noted. There is enlarged left pleural effusion seen. DOPPLER INTERROGATION: Doppler interrogation of the aortic, mitral and tricuspid valvular presence of moderate to severe mitral and moderate tricuspid regurgitation, calculated right ventricular systolic pressure is 59 mmHg consistent with moderate pulmonary hypertension, Doppler evidence of raised left atrial ventricular end-diastolic pressure seen. CONCLUSION: 1. Biatrial enlargement, dilated left ventricle, severely reduced left ventricular systolic function, visually estimated ejection fraction approximately 25-30% with multiple segmental wall motion abnormality described above, Doppler evidence of raised left atrial as well as left ventricular end-diastolic pressure seen. 2. Moderate to severe mitral and moderate tricuspid regurgitation, calculated right ventricular systolic pressure is 59 mmHg consistent with moderate pulmonary hypertension. 3. No significant pericardial effusion, large left-sided pleural effusion seen.
--- NOTE | 2018-01-01 10:18 | XR_ITS ---
XR chest 2V HISTORY: ITS.REASON: SYSTOLIC CHF, CARDIOMYOPATHY ORDERING PHYSICIAN: Emy Paris PATIENT AGE: 72 years COMPARISON: 10/31/2017 FINDINGS: There is cardiomegaly with pulmonary venous congestion and moderate-sized bilateral pleural effusions with bibasilar edema consistent with congestive heart failure in this patient that has had a prior median sternotomy/CABG with overlying cardiac monitoring device is present. IMPRESSION: Congestive heart failure with bilateral effusions and pulmonary edema
== END ==
PROVIDERS: Family Provider Internal Medicine Adolescent Medicine; PCP Internal Medicine Adolescent Medicine; Visit Provider Nurse Practitioner Family
DX: I50.22 Chronic systolic (congestive) heart failure (principal); I25.5 Ischemic cardiomyopathy
CPT/HCPCS: 71046; 93306

== ENCOUNTER 2018-01-03 17:57 | Inpatient (IN) ==
--- NOTE | 2018-01-03 18:16 | Emergency Department Note ---
ED Disposition Clinical Impression: Lower GI bleeding, Anticoagulation excessive, Diabetes, Hypertension, Chronic renal failure, Pleural effusion due to another disorder, Lymphedema Disposition: Still a Patient Condition on Discharge: Fair Instructions: DI for Gastrointestinal Bleeding Referrals: Wayne Miles MD [Primary Care Provider] - - Critical Care Critical Care Time: No Attestation: On 01/03/18, the high probability of a clinically significant, sudden or life threatening deterioration of the following system(s) required my full and direct attention, intervention and personal management. The time I documented below is in addition to time spent performing reported procedures but includes the following listed in this critical care notation. Medical Decision Making - Davin Inquiry Pt receiving controlled substance: No Davin was queried for this patient: No Vital Signs: 01/03/18 17:58 01/03/18 19:11 Temperature 98.2 F Temperature Source Oral Pulse Rate [Right Radial] 72 80 Respiratory Rate 16 14 Blood Pressure [Right Arm] 103/60 110/49 Blood Pressure Mean [Right Arm] 74 69 Blood Pressure Source [Right Arm] Automatic Cuff Automatic Cuff Blood Pressure Position [Right Arm] Supine Supine 02 Sat by Pulse Oximetry 96 97 Oxygen Delivery Method Nasal Cannula Nasal Cannula Oxygen Flow Rate (LPM) 3 3 - Lab Data Lab Results 01/03/18 18:00: WBC 11.2 H, RBC 2.21 L, Hgb 6.0 L*, Hct 19.5 L*, MCV 88.6, MCH 27.0, MCHC 30.5 L, RDW 16.9, Plt Count 339, MPV 7.8, Neut % (Auto) 89.4 H, Lymph % (Auto) 5.6 L, [place] % (Auto) 3.9, Eos % (Auto) 1.1, Baso % (Auto) 0.1, Neut # (Auto) 10.0 H, Lymph # (Auto) 0.6 L, [place] # (Auto) 0.4, Eos # (Auto) 0.1 , Baso # (Auto) 0.0, Total Counted 100, Neutrophils % (Manual) 92 H, Lymphocytes % (Manual) 6 L, Monocytes % (Manual) 1 L, Eosinophils % (Manual) 1, Platelet Estimate Normal, RBC Morphology Normal, Hypochromasia 3+ 01/03/18 18:00: PT 12.5 H, INR 1.22 H, APTT 28.0 01/03/18 18:00: Sodium 144, Potassium 3.9, Chloride 104, Carbon Dioxide 32, Anion Gap 11.9, BUN 43 H, Creatinine 1.56 H, Estimated Creat Clear 30, Estimated GFR 33 L, Est GFR ( Amer) 39 L, Glucose 192 H, Calcium 8.5, Total Bilirubin 0.6, AST 11 L, ALT 16, Alkaline Phosphatase 89, Total Protein 5.5 L, Albumin 2.1 L, Globulin 3.4 H, Albumin/Globulin Ratio 0.6 L 01/03/18 18:00: Blood Type B Positive, Antibody Screen Negative, Crossmatch (AHG ) See Detail 01/03/18 18:00: Lactate 1.7 01/03/18 18:13: Stool Occult Blood Positive A Result diagrams: 01/03/18 18:00 01/03/18 18:00 Orders (Tests/Meds): ED MEDICATIONS Generic Name Dose Route Start Last Admin Trade Name Freq PRN Reason Stop Dose Admin Sodium Chloride 250 mls @ 25 mls/hr 01/03/18 18:45 Sod Chlor 0.9% 250ml Bag IV 01/04/18 18:44 .Q10H LADI Pantoprazole Sodium 80 mg/ 100 mls @ 10 mls/hr 01/03/18 18:45 Sodium Chloride IV 01/06/18 18:44 .Q10H LADI Discontinued Medications Generic Name Dose Route Start Last Admin Trade Name Freq PRN Reason Stop Dose Admin Famotidine 20 mg 01/03/18 18:42 01/03/18 19:20 Pepcid 20mg/2ml Vial IV 01/03/18 18:43 20 mg ONCE ONE Administration Sodium Chloride 1,000 mls @ 999 mls/hr 01/03/18 18:15 01/03/18 18:15 Sod Chlor 0.9% 1000ml Bag IV 01/03/18 19:15 999 mls/hr .Q1H1M LADI Administration Pantoprazole Sodium 40 mg 01/03/18 18:42 01/03/18 19:20 Protonix 40mg Vial IV 01/03/18 18:43 40 mg ONCE ONE Administration Sodium Chloride 8 ml 01/03/18 18:42 01/03/18 19:19 Saline Flush 10ml Syringe IV 01/03/18 18:43 8 ml ONCE ONE Administration ORDERS Category Date Time Status Red Blood Cells Stat BBK 01/03/18 18:00 Results Type and Screen Stat BBK 01/03/18 18:[address] abdomen pelvis wo con Stat Cat Scan 01/03/18 18:11 Taken Blood Culture Stat Micro 01/03/18 18:16 Received - CT Data CT Scan: Abdomen, Pelvis Time Received: 19:[address] Reviewed: Yes: I have viewed the radiologist's interpretation Preliminary Findings: Abnormal Findings Narrative: CV RADS report Medical Decision Narrative: Patient received IV fluids and remained hemodynamically stable her hemoglobin came back at 6gm. I called Dr. Cain a clothes drier assembler who agreed that the aspirin and Brilinta can be stopped. I spoke with Dr. Bah the surgeon automation developer who was agreeing to see the patient in consultation for endoscopy. I discussed the verad report with Dr. Gonzales we believe that the soft tissue findings are consistent with lymphedema secondary to her chronic renal failure and ischemic cardio mild. She has no fever she has no elevated white count and negative lactic acid. Dr. Gonzales accepted to admit for blood transfusion with consultation to surgery. GI Bleed HPI - General Chief complaint: GI Bleed Stated complaint: GI BLEED Time Seen by Provider: 01/03/18 18:00 Mode of Arrival: EMS Limitations: Physical Limitations Description of Symptoms (Recalled from ER Triage Doc. by RN): SENIOR CARE STAFF REPORTS THAT PT HAD ONE EPISODE OF BOWEL MOVEMENT WITH BRIGHT RED BLOOD AND "NUMEROUS BLOOD CLOTS" ABOUT ONE HOUR AGO. PT REPORTS BILATERAL LOWER QUAD/ PELVIC PAIN AND RUQ. - History of Present Illness HPI Narrative: 72 years old white female with multiple medical problems who has been experiencing decreased appetite and weakness for the past 3 days. Today she woke up with lower abdominal pain 1 hour ago she went to have a bowel movement and she developed lower GI bleeding. She did have history of blood transfusion due to chronic anemia secondary to her chronic renal failure. She is not on dialysis. She denies hematemesis or coffee-ground emesis. The patient has history of coronary artery disease status post CABG in 2004 she is carrying an external defibrillator, she does have ischemic cardiomyopathy with ejection fraction of 25% mention by Dr. Cain was in October 2017 and she is on aspirin and berlinta for anticoagulation. MD complaint: gross hematochezia Onset (ago): hour(s) (one hour ago) Consistency: now resolved Severity: mild Relieving factors: none Exacerbating factors: none Associated symptoms: nausea, malaise, weakness Treatments Prior to Arrival: none - Related Data Home Medications Medication Instructions Recorded Confirmed aspirin 81 mg tablet,delayed 81 mg PO DAILY 05/22/17 01/03/18 release buspirone 10 mg tablet 10 mg PO TID 05/22/17 01/03/18 Calcium Carbonate 500 mg PO BID 09/07/17 01/03/18 Carvedilol [Carvedilol 25mg Tab] 25 mg PO BID 09/07/17 01/03/18 Fluoxetine HCl [Prozac] 40 mg PO DAILY 09/07/17 01/03/18 Ticagrelor [Brilinta 90mg Tablet] 90 mg PO BID 09/07/17 01/03/18 acetaminophen ER 650 mg 650 mg PO Q8H PRN tab 11/13/17 01/03/18 tablet,extended release ondansetron HCl 4 mg tablet 4 mg PO QID PRN 11/13/17 01/03/18 Ascorbic Acid [Vitamin C] 250 mg PO TID 01/03/18 01/03/18 Furosemide [Furosemide 80mg Tab] 40 mg PO BID 01/03/18 01/03/18 Ipratropium/Albuterol Sulfate 3 ml IH Q4HP PRN 01/03/18 01/03/18 [Duoneb 3mL neb] Lisinopril [Prinivil 5mg Tablet] 5 mg PO DAILY 01/03/18 01/03/18 Mvit,Calcium,Iron,Mins/A.acids 1 each PO DAILY 01/03/18 01/03/18 [[place] Double Strength Capsule] Pantoprazole Sodium [Protonix 40mg 40 mg PO HS 01/03/18 01/03/18 tablet] Vits96/Iron Fum/Folic 1 each PO DAILY 01/03/18 01/03/18 [ MVI w/Iron Tablet] Sitagliptin Phosphate [Januvia] 25 mg PO DAILY 01/03/18 01/03/18 Zinc Sulfate [Zinc-220] 220 mg PO DAILY 01/03/18 01/03/18 Previous Rx's Medication Instructions Recorded amlodipine 5 mg tablet 5 mg PO DAILY #90 tab 10/16/17 Polyethylene Glycol 3350 [Miralax 17 gm PO DAILYP PRN powd.pack 11/01/17 17gm Packet] Allergies Allergy/AdvReac Type Severity Reaction Status Date / Time Qsxyfyq-Omc-Ysf Reductase Allergy Verified 12/18/17 10:33 Inhibitor [facility] History I have reviewed the patient's past medical history: Yes Medical History: Reports:: Congenital Heart Disease, Coronary Artery Disease, Diabetes Mellitus Type 2, Hyperlipidemia, Hypertension, Myocardial Infarction Denies:: Cancer, Diabetes Mellitus Type 1, MRSA Other Medical History: Reports: Anemia, Cataracts Comment: History of CVA, Muscle aches due to statin Other Surgeries: Yes: CABG, Cardiac Catheterization, Cardiac Surgery, Colonoscopy, Coronary Stent, EGD, Other (CABG, Cardiac cath in 2016, 04/25/2017) Amputation: No Fractures: No - Social History Smoking Status: Former smoker Tobacco Type: cigarettes # Packs/Day (cigarettes): 1 #Yrs smoked (if former smoker): 35 Alcohol Intake: never Alcohol Intake Frequency:: other Substance Use Type: denies use Occupational Status: retired Housing: house Household Members: spouse - Psychiatric History Expresses thoughts of harming self/others: None Suicide Plan Description: No Plan Family Hx:: Coronary Artery Disease, Heart Attack, Hypertension ROS Obtained: Yes All systems reviewed & no additional complaints Physical Exam - General General appearance: alert, in no apparent distress - Head Head exam: atraumatic, normocephalic, normal inspection - Eye Eye exam: Present: normal appearance, PERRL, EOMI, other (She does have cataract in the right eye.). Absent: scleral icterus, jaundice - ENT ENT exam: Present: normal exam, normal oropharynx, mucous membranes moist, TM's normal bilaterally, normal external ear exam - Neck Neck exam: Present: normal inspection, full ROM, trachea midline. Absent: tenderness, meningismus, lymphadenopathy - Chest Chest inspection: Present: normal inspection, symmetric chest wall rise. Absent : tenderness - Respiratory Respiratory exam: Present: normal lung sounds bilaterally. Absent: respiratory distress - Cardiovascular Cardiovascular exam: Present: regular rate, normal rhythm, normal heart sounds. Absent: JVD - Abdominal Exam Abdominal exam: Present: soft, tenderness, normal bowel sounds, other (She does have mild diffuse tenderness in the lower abdomen with no focal tenderness no guarding no rigidity no rebound. ). Absent: distention, guarding, rebound, rigidity, Rodriguez's sign, tenderness at McBurney's Point - Rectal Exam Rectal exam: Present: normal rectal tone, heme (+) stool, other comment: Patient has grade 1 sacral ulcer good rectal tone a mixture between melanotic stool and maroon blood - External exam: Present: normal external exam - Extremities Exam Extremities exam: Present: normal inspection, full ROM, normal capillary refill. Absent: calf tenderness - Back Exam Back exam: Present: normal inspection. Absent: tenderness, CVA tenderness (R), CVA tenderness (L), paraspinal tenderness, vertebral tenderness - Neurological Exam Neurological exam: Present: alert, oriented X3, CN II-XII intact, motor sensory deficit, reflexes normal - Psychiatric Psychiatric exam: Present: normal affect, normal mood - Skin Skin exam: Present: warm, dry, intact, normal color - Lymphatic Lymphatic Findings: no adenopathy
[2018-01-03 18:30] LABS: Basophils % 0.1 % (0.1-2.0); Eosinophils # 0.1 K/mm3 (0.0-0.4); Eosinophils % 1.1 % (0.1-12.0); Lymphocytes # 0.6 K/mm3 (0.7-4.5); Lymphocytes % 5.6 K/mm3 (10-50); Mean Corpuscular HGB Conc 30.5 g/dL (31.8-35.4); Mean Corpuscular Volume 88.6 fl (81-99); Mean Platelet Volume 7.8 fl (7.4-10.4); Monocytes # 0.4 K/mm3 (0.1-1.0); Monocytes % 3.9 % (1.7-9.3); Neutrophils % 89.4 % (37.0-80.0); Platelet Count 339 K/mm3 (142-424); Red Blood Count 2.21 M/mm3 (4.20-5.40); Red Cell Distribution Width 16.9 % (11.5-17.5); White Blood Count 11.2 K/mm3 (4.8-10.8)
[2018-01-03 18:33] LABS: Hematocrit 19.5 % (37.0-47.0)
[2018-01-03 18:39] LABS: INR 1.22 (0.9-1.1); Prothrombin Time 12.5 seconds (9.4-11.8)
[2018-01-03 18:43] LABS: Albumin Level 2.1 gm/dL (3.4-5.0); Albumin/Globulin Ratio 0.6 (1.1-1.8); Anion Gap 11.9 mEq/L (5-15); Bilirubin,Total 0.6 mg/dL (0.2-1.0); Calcium 8.5 mg/dL (8.5-10.1); Globulin 3.4 gm/dl (1.3-3.2); Potassium 3.9 mmoL/L (3.5-5.1); Total Protein,Serum 5.5 gm/dL (6.4-8.2)
[2018-01-03 19:19] LABS: Eosinophils % 1 % (0-3); Hypochromasia 3+; Lymphocytes % 6 % (10-50); Monocytes % 1 % (2-9); Neutrophils % 92 % (42-76); Total Cells Counted 100
[2018-01-03 19:20] LABS: RBC Morphology Normal
[2018-01-04 04:09] LABS: Hematocrit 28.4 % (37.0-47.0)
[2018-01-04 04:12] LABS: Hemoglobin 9.5 g/dL (12.2-16.2)
--- NOTE | 2018-01-04 06:29 | Consult Report ---
*Admission Date: 01/03/18 *Chief complaint: weakness and bleeding *History of present illness: 72yo female who presented to the emergency department overnight with increasing weakness and history of "dark stools". She was found to be profoundly anemic and admitted to the medical service with surgical consultation for esophagogastroduodenoscopy. She does have a history of coronary artery disease he is status post stent placement in October of this year. She is on aspirin/Brilinta [now held]. Review of Systems - Constitutional Denies excessive sweating - Eyes Denies change in vision - ENT Denies change in voice - *Cardiovascular Denies chest pain - *Respiratory Denies cough - *Gastrointestinal Reports black, tarry stools, Denies pain with swallowing - *Genitourinary Denies abnormal vaginal bleeding [facility] History Medical History: Reports:: Congenital Heart Disease, Coronary Artery Disease, Diabetes Mellitus Type 2, Hyperlipidemia, Hypertension, Myocardial Infarction Denies:: Cancer, Diabetes Mellitus Type 1, MRSA Other Medical History: Reports: Anemia, Cataracts Other Surgeries: Yes: CABG, Cardiac Catheterization, Cardiac Surgery, Colonoscopy, Coronary Stent, EGD, Other (CABG, Cardiac cath in 2015, 04/25/2017) Amputation: No Fractures: Yes (a) - *Social History Smoking Status: Former smoker Tobacco Type: cigarettes # Packs/Day (cigarettes): 1 #Yrs smoked (if former smoker): 35 Alcohol Intake: former Alcohol Intake Frequency:: holidays/special occasions only Substance Use Type: denies use Occupational Status: retired Housing: halfway Household Members: spouse - Psychiatric History Expresses thoughts of harming self/others: None Suicide Plan Description: No Plan *Family Hx:: Coronary Artery Disease, Heart Attack, Hypertension Meds Home Medications Medication Instructions Recorded Confirmed Type aspirin 81 mg tablet,delayed 81 mg PO DAILY 05/22/17 01/03/18 History release buspirone 10 mg tablet 10 mg PO TID 05/22/17 01/03/18 History Calcium Carbonate 500 mg PO BID 09/07/17 01/03/18 History Carvedilol [Carvedilol 25mg Tab] 25 mg PO BID 09/07/17 01/03/18 History Fluoxetine HCl [Prozac] 40 mg PO DAILY 09/07/17 01/03/18 History Ticagrelor [Brilinta 90mg Tablet] 90 mg PO BID 09/07/17 01/03/18 History ondansetron HCl 4 mg tablet 4 mg PO QID PRN 11/13/17 01/03/18 History Acetaminophen [Acetaminophen 325mg 650 mg PO Q6HP PRN 01/03/18 01/03/18 History tab] Ascorbic Acid [Vitamin C] 500 mg PO BID 01/03/18 01/03/18 History Furosemide [Furosemide 80mg Tab] 80 mg PO BID 01/03/18 01/03/18 History Ipratropium/Albuterol Sulfate 3 ml IH Q4HP PRN 01/03/18 01/03/18 History [Duoneb 3mL neb] Lisinopril [Prinivil 5mg Tablet] 5 mg PO DAILY 01/03/18 01/03/18 History Loperamide HCl [Loperamide] 2 mg PO Q6HP PRN 01/03/18 01/03/18 History Mvit,Calcium,Iron,Mins/A.acids 1 each PO DAILY 01/03/18 01/03/18 History [[place] Double Strength Capsule] Pantoprazole Sodium [Protonix 40mg 40 mg PO HS 01/03/18 01/03/18 History tablet] Vits96/Iron Fum/Folic 1 each PO DAILY 01/03/18 01/03/18 History [ MVI w/Iron Tablet] Sitagliptin Phosphate [Januvia] 50 mg PO DAILY 01/03/18 01/03/18 History Zinc Sulfate [Zinc-220] 220 mg PO DAILY 01/03/18 01/03/18 History Allergies Allergy/AdvReac Type Severity Reaction Status Date / Time Apfsznw-Eem-Qxt Reductase Allergy Verified 01/03/18 21:38 Inhibitor Exam Vital signs and Labs for Last 24 Hours: Temp Pulse Resp BP Pulse Ox 98.1 F 85 20 108/56 96 01/04/18 04:22 01/04/18 04:22 01/04/18 04:22 01/04/18 04:22 01/04/18 04:22 Laboratory Results - last 24 hr 01/03/18 18:00: WBC 11.2 H, RBC 2.21 L, Hgb 6.0 L*, Hct 19.5 L*, MCV 88.6, MCH 27.0, MCHC 30.5 L, RDW 16.9, Plt Count 339, MPV 7.8, Neut % (Auto) 89.4 H, Lymph % (Auto) 5.6 L, [place] % (Auto) 3.9, Eos % (Auto) 1.1, Baso % (Auto) 0.1, Neut # (Auto) 10.0 H, Lymph # (Auto) 0.6 L, [place] # (Auto) 0.4, Eos # (Auto) 0.1 , Baso # (Auto) 0.0, Total Counted 100, Neutrophils % (Manual) 92 H, Lymphocytes % (Manual) 6 L, Monocytes % (Manual) 1 L, Eosinophils % (Manual) 1, Platelet Estimate Normal, RBC Morphology Normal, Hypochromasia 3+ 01/03/18 18:00: PT 12.5 H, INR 1.22 H, APTT 28.0 01/03/18 18:00: Sodium 144, Potassium 3.9, Chloride 104, Carbon Dioxide 32, Anion Gap 11.9, BUN 43 H, Creatinine 1.56 H, Estimated Creat Clear 30, Estimated GFR 33 L, Est GFR ( Amer) 39 L, Glucose 192 H, Calcium 8.5, Total Bilirubin 0.6, AST 11 L, ALT 16, Alkaline Phosphatase 89, Total Protein 5.5 L, Albumin 2.1 L, Globulin 3.4 H, Albumin/Globulin Ratio 0.6 L 01/03/18 18:00: Blood Type B Positive, Antibody Screen Negative, Crossmatch (AHG ) See Detail 01/03/18 18:00: Lactate 1.7 01/03/18 18:13: Stool Occult Blood Positive A 01/04/18 04:00: Hgb 9.5 L D, Hct 28.4 L I & O for Last 24 hours: Intake & Output 01/01/18 01/02/18 01/03/18 01/04/18 11:59 11:59 11:59 11:59 Intake Total 500 / 500 Balance 500 / 500 Weight 152 lb 7 oz - Constitutional no acute distress - *Routine Respiratory Exam Absent: respiratory distress - *Routine Cardiovascular Exam Present: RRR - *Routine Abdominal Exam Present: soft Results - Labs 01/04/18 04:00 01/03/18 18:00 Laboratory Results - last 24 hr 01/03/18 18:00: WBC 11.2 H, RBC 2.21 L, Hgb 6.0 L*, Hct 19.5 L*, MCV 88.6, MCH 27.0, MCHC 30.5 L, RDW 16.9, Plt Count 339, MPV 7.8, Neut % (Auto) 89.4 H, Lymph % (Auto) 5.6 L, [place] % (Auto) 3.9, Eos % (Auto) 1.1, Baso % (Auto) 0.1, Neut # (Auto) 10.0 H, Lymph # (Auto) 0.6 L, [place] # (Auto) 0.4, Eos # (Auto) 0.1 , Baso # (Auto) 0.0, Total Counted 100, Neutrophils % (Manual) 92 H, Lymphocytes % (Manual) 6 L, Monocytes % (Manual) 1 L, Eosinophils % (Manual) 1, Platelet Estimate Normal, RBC Morphology Normal, Hypochromasia 3+ 01/03/18 18:00: PT 12.5 H, INR 1.22 H, APTT 28.0 01/03/18 18:00: Sodium 144, Potassium 3.9, Chloride 104, Carbon Dioxide 32, Anion Gap 11.9, BUN 43 H, Creatinine 1.56 H, Estimated Creat Clear 30, Estimated GFR 33 L, Est GFR ( Amer) 39 L, Glucose 192 H, Calcium 8.5, Total Bilirubin 0.6, AST 11 L, ALT 16, Alkaline Phosphatase 89, Total Protein 5.5 L, Albumin 2.1 L, Globulin 3.4 H, Albumin/Globulin Ratio 0.6 L 01/03/18 18:00: Blood Type B Positive, Antibody Screen Negative, Crossmatch (AHG ) See Detail 01/03/18 18:00: Lactate 1.7 01/03/18 18:13: Stool Occult Blood Positive A 01/04/18 04:00: Hgb 9.5 L D, Hct 28.4 L Assessment and Plan (1) Melena Current visit: Yes Status: Acute Category: Medical Code(s): K92.1 - Melena good response to PRBCs continue PPI EGD this AM (2) Anemia Current visit: No Status: Chronic Qualifiers: Anemia type: unspecified type Qualified Code(s): D64.9 - Anemia, unspecified Category: Medical Code(s): D64.9 - Anemia, unspecified
[2018-01-04 07:00] LABS: Basophils % 0.1 % (0.1-2.0); Eosinophils # 0.1 K/mm3 (0.0-0.4); Eosinophils % 0.7 % (0.1-12.0); Hematocrit 28.9 % (37.0-47.0); Hemoglobin 9.3 g/dL (12.2-16.2); Lymphocytes # 0.6 K/mm3 (0.7-4.5); Lymphocytes % 4.9 K/mm3 (10-50); Mean Corpuscular HGB Conc 32.4 g/dL (31.8-35.4); Mean Corpuscular Hemoglobin 27.9 pg (27.0-31.2); Mean Corpuscular Volume 86.1 fl (81-99); Mean Platelet Volume 8.8 fl (7.4-10.4); Monocytes # 0.5 K/mm3 (0.1-1.0); Neutrophils # 11.2 K/mm3 (1.8-7.8); Neutrophils % 90.4 % (37.0-80.0); Platelet Count 296 K/mm3 (142-424); Red Blood Count 3.35 M/mm3 (4.20-5.40); Red Cell Distribution Width 15.9 % (11.5-17.5); White Blood Count 12.4 K/mm3 (4.8-10.8)
[2018-01-04 07:08] LABS: Anion Gap 11.6 mEq/L (5-15); Calcium 8.7 mg/dL (8.5-10.1); Potassium 3.6 mmoL/L (3.5-5.1)
--- NOTE | 2018-01-04 07:11 | Progress Note ---
[facility] Anesthesia Checklist - Patient Identification Patient Identification: Arm Band, Verbal (Name & ) - Structural Data Admitted From: Long-term Nursing Facility Planned Operative Procedure/s: EGD Consent for Planned Operative Procedure(s) Verified: Yes Verified Documents: Surgical Consent, History and Physical - NPO Status Verified Time NPO: 00:00 - Additional verifications Anesthesia Reactions: No - Airway Assessment C-Spine Mobility Assessed: Yes (Limited neck ROM) TMJ Mobility Assessed: Yes Dentition: Poor Dentition - Neurological Assessment Level of Consciousness: Awake Hx Seizures: No Numbness or tingling in extremities: No - Anesthesia Plan Anesthesia Risk discussed: Yes Anesthesia Plan: Verified ASA Class: III (Emergent) Anesthesia Type: [facility] Anesthesia HX I have reviewed the patient's past medical history: Yes Medical History: Reports:: Asthma, Cardiomyopathy, Congenital Heart Disease, Coronary Artery Disease, Cerebrovascular Accident, Diabetes Mellitus Type 2, Gastroesophageal Reflux Disease(GERD), Hyperlipidemia, Hypertension, Myocardial Infarction, Renal Insufficiency Denies:: Cancer, Diabetes Mellitus Type 1, MRSA Other Medical History: Reports: Anemia, Cataracts, Other (Gout, O2@home, ) Other Surgeries: Yes: CABG, Cardiac Catheterization, Cardiac Surgery, Colonoscopy, Coronary Stent, EGD, Other (CABG, Cardiac cath in 2016, 04/25/2017) Amputation: No Fractures: Yes (a) *Family Hx:: Coronary Artery Disease, Heart Attack, Hypertension
--- NOTE | 2018-01-04 07:34 | Procedure Note ---
- Procedure: Date: 01/04/18 Procedure Performed:: Esophagogastroduodenoscopy with biopsy Indications:: Anemia Melena Performing Provider:: Kalen Bah MD Referring Provider:: Dr. Miles Sedation:: Monitored anesthesia care Procedure:: After informed consent was obtained, the patient was taken to the endoscopy suite. Monitored anesthesia care ensued and she was transferred to the left lateral decubitus position. The gastroscope was advanced. Large linear shallow ulcerations with an exudative base were noted throughout the mid esophagus. No sign of active bleeding or definitive recent hemorrhage noted. The gastroscope was advanced into the stomach and retroflexion revealed a significant sliding hiatal hernia. Patchy inflammation and tiny shallow ulcerative lesions of the cardia noted. Streaking gastritis throughout the mid body noted. Distally, inflammation was also noted and tiny shallow ulcerations of the antrum were noted and biopsies were obtained. The pylorus is intubated. The duodenal mucosa appeared relatively normal however there was significant angulation and advancement beyond the bulb did not occur. The gastroscope was carefully removed and the patient was transferred to recovery. Findings:: Ulcerative/erosive esophagitis with no sign of active bleeding Patchy gastritis/streaking gastritis Small patchy gastric ulcerations mostly in the cardia and antrum Sliding hiatal hernia Specimens:: Antral biopsy Recommendations:: Continue PPI Liquid diet for now Carafate Diflucan (due to small possibility of esophageal candidiasis) Repeat EGD in 2-3 weeks Complications:: No immediate Estimated blood obtained (mL): 1
[2018-01-04 07:42] LABS: Eosinophils % 1 % (0-3); Lymphocytes % 10 % (10-50); Monocytes % 1 % (2-9); Neutrophils % 86 % (42-76); Total Cells Counted 100
[2018-01-04 07:44] LABS: RBC Morphology Normal
--- NOTE | 2018-01-04 08:16 | History & Physical Report ---
*Admission Date: 01/03/18 *Chief complaint: Bloody stools *History of present illness: 72yo female with Hx of CAD s/p stent placement in 2017, repeat cath 2 months ago , who presented from [facility] to the ED overnight for bloody stools. She complains of increasing weakness, fatigue, shortness of breath, decreased p.o. intake, nausea with no emesis for the past 7-10 days. Yesterday afternoon patient noted to have a large volume dark bloody stool that became more bright red toward the end of the bowel movement. Also noted to pass several clots. Additionally patient's vitals significant for some tension. Her [facility] contacted physician pulmonary function technician, instructed to come to the ER. On assessment in the emergency room patient was noted to have positive guaiac stool and hemoglobin of 6 (baseline approximately 9.5), elevated BUN in the setting of stable creatinine, tachycardia, and hypotension. Admitted to medicine service with cardiology consult and surgical consult placed. Patient's ticagrelor and aspirin held. Made n.p.o. at midnight. Patient transfused 2 units of blood with appropriate response and return to baseline hemoglobin 9.5. No further episodes of bleeding noted. Seen by surgery this morning for EGD. [facility] History Medical History: Reports:: Asthma, Cardiomyopathy, Congenital Heart Disease, Coronary Artery Disease, Cerebrovascular Accident, Diabetes Mellitus Type 2, Gastroesophageal Reflux Disease(GERD), Hyperlipidemia, Hypertension, Myocardial Infarction, Renal Insufficiency Denies:: Cancer, Diabetes Mellitus Type 1, MRSA, Seizures Other Medical History: Reports: Anemia, Cataracts, Other (Gout, O2@home, ) Other Surgeries: Yes: CABG, Cardiac Catheterization, Cardiac Surgery, Colonoscopy, Coronary Stent, EGD, Other (CABG, Cardiac cath in 2015, 04/25/2017) Amputation: No Fractures: Yes (a) - *Social History Smoking Status: Former smoker Tobacco Type: cigarettes # Packs/Day (cigarettes): 1 #Yrs smoked (if former smoker): 35 Alcohol Intake: former Alcohol Intake Frequency:: holidays/special occasions only Substance Use Type: denies use Occupational Status: retired Housing: prison Household Members: spouse - Psychiatric History Expresses thoughts of harming self/others: None Suicide Plan Description: No Plan *Family Hx:: Coronary Artery Disease, Heart Attack, Hypertension Review of Systems - Review of Systems Review of systems:: pertinent systems reviewed and negative unless documented below Meds Home Medications Medication Instructions Recorded Confirmed Type aspirin 81 mg tablet,delayed 81 mg PO DAILY 05/22/17 01/03/18 History release buspirone 10 mg tablet 10 mg PO TID 05/22/17 01/03/18 History Calcium Carbonate 500 mg PO BID 09/07/17 01/03/18 History Carvedilol [Carvedilol 25mg Tab] 25 mg PO BID 09/07/17 01/03/18 History Fluoxetine HCl [Prozac] 40 mg PO DAILY 09/07/17 01/03/18 History Ticagrelor [Brilinta 90mg Tablet] 90 mg PO BID 09/07/17 01/03/18 History ondansetron HCl 4 mg tablet 4 mg PO QID PRN 11/13/17 01/03/18 History Acetaminophen [Acetaminophen 325mg 650 mg PO Q6HP PRN 01/03/18 01/03/18 History tab] Ascorbic Acid [Vitamin C] 500 mg PO BID 01/03/18 01/03/18 History Furosemide [Furosemide 80mg Tab] 80 mg PO BID 01/03/18 01/03/18 History Ipratropium/Albuterol Sulfate 3 ml IH Q4HP PRN 01/03/18 01/03/18 History [Duoneb 3mL neb] Lisinopril [Prinivil 5mg Tablet] 5 mg PO DAILY 01/03/18 01/03/18 History Loperamide HCl [Loperamide] 2 mg PO Q6HP PRN 01/03/18 01/03/18 History Mvit,Calcium,Iron,Mins/A.acids 1 each PO DAILY 01/03/18 01/03/18 History [[place] Double Strength Capsule] Pantoprazole Sodium [Protonix 40mg 40 mg PO HS 01/03/18 01/03/18 History tablet] Vits96/Iron Fum/Folic 1 each PO DAILY 01/03/18 01/03/18 History [ MVI w/Iron Tablet] Sitagliptin Phosphate [Januvia] 50 mg PO DAILY 01/03/18 01/03/18 History Zinc Sulfate [Zinc-220] 220 mg PO DAILY 01/03/18 01/03/18 History Allergies Allergy/AdvReac Type Severity Reaction Status Date / Time [id number]-Cja Reductase Allergy Verified 01/03/18 21:38 Inhibitor Exam Vital signs and Labs for Last 24 Hours: Temp Pulse Resp BP Pulse Ox 98 F 71 20 103/53 100 01/04/18 07:35 01/04/18 07:35 01/04/18 07:35 01/04/18 07:35 01/04/18 07:35 Laboratory Results - last 24 hr 01/03/18 18:00: WBC 11.2 H, RBC 2.21 L, Hgb 6.0 L*, Hct 19.5 L*, MCV 88.6, MCH 27.0, MCHC 30.5 L, RDW 16.9, Plt Count 339, MPV 7.8, Neut % (Auto) 89.4 H, Lymph % (Auto) 5.6 L, [place] % (Auto) 3.9, Eos % (Auto) 1.1, Baso % (Auto) 0.1, Neut # (Auto) 10.0 H, Lymph # (Auto) 0.6 L, [place] # (Auto) 0.4, Eos # (Auto) 0.1 , Baso # (Auto) 0.0, Total Counted 100, Neutrophils % (Manual) 92 H, Lymphocytes % (Manual) 6 L, Monocytes % (Manual) 1 L, Eosinophils % (Manual) 1, Platelet Estimate Normal, RBC Morphology Normal, Hypochromasia 3+ 01/03/18 18:00: PT 12.5 H, INR 1.22 H, APTT 28.0 01/03/18 18:00: Sodium 144, Potassium 3.9, Chloride 104, Carbon Dioxide 32, Anion Gap 11.9, BUN 43 H, Creatinine 1.56 H, Estimated Creat Clear 30, Estimated GFR 33 L, Est GFR ( Amer) 39 L, Glucose 192 H, Calcium 8.5, Total Bilirubin 0.6, AST 11 L, ALT 16, Alkaline Phosphatase 89, Total Protein 5.5 L, Albumin 2.1 L, Globulin 3.4 H, Albumin/Globulin Ratio 0.6 L 01/03/18 18:00: Blood Type B Positive, Antibody Screen Negative, Crossmatch (AHG ) See Detail 01/03/18 18:00: Lactate 1.7 01/03/18 18:13: Stool Occult Blood Positive A 01/04/18 04:00: Hgb 9.5 L D, Hct 28.4 L 01/04/18 06:30: WBC 12.4 H, RBC 3.35 L D, Hgb 9.3 L, Hct 28.9 L, MCV 86.1, MCH 27.9, MCHC 32.4, RDW 15.9, Plt Count 296, MPV 8.8, Neut % (Auto) 90.4 H, Lymph % (Auto) 4.9 L, [place] % (Auto) 4.0, Eos % (Auto) 0.7, Baso % (Auto) 0.1, Neut # ( Auto) 11.2 H, Lymph # (Auto) 0.6 L, [place] # (Auto) 0.5, Eos # (Auto) 0.1, Baso # (Auto) 0.0, Total Counted 100, Neutrophils % (Manual) 86 H, Band Neutrophils % 2.0, Lymphocytes % (Manual) 10, Monocytes % (Manual) 1 L, Eosinophils % (Manual ) 1, Platelet Estimate Normal, RBC Morphology Normal 01/04/18 06:30: Sodium 144, Potassium 3.6, Chloride 105, Carbon Dioxide 31, Anion Gap 11.6, BUN 44 H, Creatinine 1.58 H, Estimated Creat Clear 35, Estimated GFR 32 L, Est GFR ( Amer) 39 L, Glucose 164 H, Calcium 8.7, Magnesium 1.6 I & O for Last 24 hours: Intake & Output 01/01/18 01/02/18 01/03/18 01/04/18 23:59 23:59 23:59 23:59 Intake Total 250 / 250 250 / 250 Balance 250 / 250 250 / 250 Weight 72.348 kg 69.144 kg - *Routine HEENT Exam Comments: Chronically ill-appearing, bitemporal wasting, cataract in right eye, nasal cannula in place, poor dentition. - *Routine Neck Exam Present: supple, full ROM. Absent: JVD - *Routine Respiratory Exam Present: prolonged expiratory phase, wheezes. Absent: CTA bilaterally, rales, rhonchi, crackles - *Routine Cardiovascular Exam Present: RRR, Normal S1, Normal S2. Absent: murmur - *Routine Abdominal Exam Present: soft, normoactive bowel sounds Comments: Diffuse tenderness greatest in epigastric and upper quadrant regions - *Routine Rectal Exam Patient deferred: visual exam - *Routine Exam Patient deferred: external exam - *Routine Extremities Exam Present: edema (1+ to mid [place]). Absent: cyanosis, clubbing Comments: Right ankle tenderness for about a week per report - *Routine Skin Exam Present: intact, dry. Absent: cyanosis, erythema - *Routine Neurological Exam Present: alert, oriented X3, CN II-XII intact. Absent: altered mental status - Routine Psychiatric Exam Present: normal affect Assessment and Plan (1) Melena Current visit: Yes Status: Acute Category: Medical Code(s): K92.1 - Melena EGD performed by surgery this morning Significant for gastritis and esophagitis Biopsies obtained Results pending Continue clear liquid diet, avoid red dyes Monitor for repeat bleeding over the next 24 hours Repeat H&H in the morning if stable consider discharge tomorrow Continue PPI, 40 mg twice daily Protonix (2) Anemia Current visit: No Status: Chronic Qualifiers: Anemia type: unspecified type Qualified Code(s): D64.9 - Anemia, unspecified Category: Medical Code(s): D64.9 - Anemia, unspecified Acute on chronic due to GI bleed (3) COPD (chronic obstructive pulmonary disease) Current visit: Yes Status: Chronic Category: Medical Code(s): J44.9 - Chronic obstructive pulmonary disease, unspecified Nebulizers as ordered Supplemental oxygen with goal set of greater than 88 while asleep, greater than 92 while awake (4) Chronic renal failure Current visit: Yes Status: Chronic Category: Medical Code(s): N18.9 - Chronic kidney disease, unspecified Monitor daily, stable, avoid nephrotoxic's (5) NYHA Class III cardiovascular function Current visit: No Status: Acute Category: Medical Continue home medications where appropriate (6) CAD (coronary artery disease) Current visit: No Status: Chronic Qualifiers: Coronary Disease-Associated Artery/Lesion type: [place] artery [place] vs. transplanted heart: [place] heart Associated angina: without angina Qualified Code(s): I25.10 - Atherosclerotic heart disease of [place] coronary artery without angina pectoris Category: Medical Code(s): I25.10 - Atherosclerotic heart disease of [place] coronary artery without angina pectoris Aspirin and Brilinta in setting of GI bleed We will discuss appropriateness of reinitiation with cardiology Goal hemoglobin greater than 8 (7) Ankle pain, right Problem details: Present on admission Current visit: Yes Status: Acute Category: Medical Code(s): M25.571 - Pain in right ankle and joints of right foot Nuclear injury, pain began after walking a week ago has been unable to bear weight since -Tender to palpation on exam -Three-view x-ray ordered, concern for fracture versus sprain (8) Diabetes Current visit: Yes Status: Chronic Category: Medical Code(s): E11.9 - Type 2 diabetes mellitus without complications Continue home medications
[2018-01-05 06:31] LABS: Calcium 8.3 mg/dL (8.5-10.1)
[2018-01-05 06:43] LABS: Basophils % 0.1 % (0.1-2.0); Eosinophils # 0.1 K/mm3 (0.0-0.4); Hematocrit 28.6 % (37.0-47.0); Lymphocytes # 0.6 K/mm3 (0.7-4.5); Lymphocytes % 4.8 K/mm3 (10-50); Mean Corpuscular HGB Conc 31.4 g/dL (31.8-35.4); Mean Corpuscular Hemoglobin 27.5 pg (27.0-31.2); Mean Corpuscular Volume 87.6 fl (81-99); Monocytes # 0.6 K/mm3 (0.1-1.0); Monocytes % 5.4 % (1.7-9.3); Neutrophils # 10.1 K/mm3 (1.8-7.8); Neutrophils % 88.7 % (37.0-80.0); Platelet Count 290 K/mm3 (142-424); Red Blood Count 3.27 M/mm3 (4.20-5.40); Red Cell Distribution Width 16.1 % (11.5-17.5); White Blood Count 11.4 K/mm3 (4.8-10.8)
[2018-01-05 07:32] LABS: Eosinophils % 1 % (0-3); Lymphocytes % 1 % (10-50); Monocytes % 5 % (2-9); Neutrophils % 93 % (42-76); RBC Morphology Normal; Total Cells Counted 100
--- NOTE | 2018-01-05 07:58 | Discharge Summary ---
General - General Admission date:: 01/03/18 Discharge date: 01/05/18 HPI HPI: 72yo female with Hx of CAD s/p stent placement in 2017, repeat cath 2 months ago , who presented from [facility] to the ED overnight for bloody stools. She complains of increasing weakness, fatigue, shortness of breath, decreased p.o. intake, nausea with no emesis for the past 7-10 days. Yesterday afternoon patient noted to have a large volume dark bloody stool that became more bright red toward the end of the bowel movement. Also noted to pass several clots. Additionally patient's vitals significant for some hypotension. Her group home contacted physician director of institutional giving, instructed to come to the ER. On assessment in the emergency room patient was noted to have positive guaiac stool and hemoglobin of 6 (baseline approximately 9.5), elevated BUN in the setting of stable creatinine, tachycardia, and hypotension. Admitted to medicine service with cardiology consult and surgical consult placed. Patient's ticagrelor and aspirin held. Made n.p.o. at midnight. Patient transfused 2 units of blood with appropriate response and return to baseline hemoglobin 9.5. No further episodes of bleeding noted. Seen by surgery this morning for EGD. Hospital Course Hospital Course: Patient was admitted as noted above, underwent EGD. Transfusion was accomplished. Hemoglobins remained above 9 g after transfusion. EGD report noted in chart as noted below: Procedure:: After informed consent was obtained, the patient was taken to the endoscopy suite. Monitored anesthesia care ensued and she was transferred to the left lateral decubitus position. The gastroscope was advanced. Large linear shallow ulcerations with an exudative base were noted throughout the mid esophagus. No sign of active bleeding or definitive recent hemorrhage noted. The gastroscope was advanced into the stomach and retroflexion revealed a significant sliding hiatal hernia. Patchy inflammation and tiny shallow ulcerative lesions of the cardia noted. Streaking gastritis throughout the mid body noted. Distally, inflammation was also noted and tiny shallow ulcerations of the antrum were noted and biopsies were obtained. The pylorus is intubated. The duodenal mucosa appeared relatively normal however there was significant angulation and advancement beyond the bulb did not occur. The gastroscope was carefully removed and the patient was transferred to recovery. Findings:: Ulcerative/erosive esophagitis with no sign of active bleeding Patchy gastritis/streaking gastritis Small patchy gastric ulcerations mostly in the cardia and antrum Sliding hiatal hernia Specimens:: Antral biopsy Recommendations:: Continue PPI Liquid diet for now Carafate Diflucan (due to small possibility of esophageal candidiasis) Repeat EGD in 2-3 weeks Complications:: Patient did well the day after her EGD. This morning she is doing fine, eating and drinking well. Patient will be transferred back to the [facility]. She will need medicines as noted in her discharge summary with proton pump inhibitor and her Carafate and Diflucan, we will hold aspirin and continue on Brilinta, labs will be ordered on Sunday morning. Please have CBC and BMP done on January 07. Objective Vital signs: Temp Pulse Resp BP Pulse Ox 97.9 F 85 20 116/59 93 L 01/05/18 04:00 01/05/18 06:38 01/05/18 04:00 01/05/18 04:00 01/05/18 06:38 Narrative: Patient is pleasant, talkative, ENT exam clear, edentulous, no oral lesions. No JVD. Anterior lung [place] are clear, heart rate regular with previously noted cardiac murmur. Abdomen soft and nontender, she is slightly pale but improved over admission exam. No edema or clubbing. Results Labs on day of discharge: Labs from last 24 hours 01/05/18 01/05/18 05:45 05:45 WBC 11.4 H RBC 3.27 L Hgb 9.0 L Hct 28.6 L MCV 87.6 MCH 27.5 MCHC 31.4 L RDW 16.1 Plt Count 290 MPV 8.0 Neut % (Auto) 88.7 H Lymph % (Auto) 4.8 L [place] % (Auto) 5.4 Eos % (Auto) 1.0 Baso % (Auto) 0.1 Neut # (Auto) 10.1 H Lymph # (Auto) 0.6 L [place] # (Auto) 0.6 Eos # (Auto) 0.1 Baso # (Auto) 0.0 Total Counted 100 Neutrophils % (Manual) 93 H Lymphocytes % (Manual) 1 L Monocytes % (Manual) 5 Eosinophils % (Manual) 1 Platelet Estimate Normal RBC Morphology Normal Sodium 144 Potassium 3.0 L Chloride 105 Carbon Dioxide 31 Anion Gap 11.0 BUN 41 H Creatinine 1.65 H Estimated Creat Clear 33 Estimated GFR 30 L Est GFR ( Amer) 37 L Glucose 185 H Calcium 8.3 L Magnesium 1.4 D DS: Diagnosis - Discharge Diagnosis (1) Melena Status: Resolved (2) Anemia Status: Chronic (3) COPD (chronic obstructive pulmonary disease) Status: Chronic (4) Chronic renal failure Status: Chronic (5) NYHA Class III cardiovascular function Status: Chronic (6) CAD (coronary artery disease) Status: Chronic (7) Ankle pain, right Status: Chronic Problem details: Present on admission (8) Diabetes Status: Chronic Discharge Plan - Patient Discharge Instructions ACTIVITY: Continue current activity DIET: continue same diet - Follow up Plan Follow up with: Kalen Bah MD [Staff Physician] - 1 week Disposition: [facility] Home Medications: Home Medications Medication Instructions Recorded Confirmed Type aspirin 81 mg tablet,delayed 81 mg PO DAILY 05/22/17 01/03/18 History release buspirone 10 mg tablet 10 mg PO TID 05/22/17 01/03/18 History Calcium Carbonate 500 mg PO BID 09/07/17 01/03/18 History Carvedilol [Carvedilol 25mg Tab] 25 mg PO BID 09/07/17 01/03/18 History Fluoxetine HCl [Prozac] 40 mg PO DAILY 09/07/17 01/03/18 History Ticagrelor [Brilinta 90mg Tablet] 90 mg PO BID 09/07/17 01/03/18 History ondansetron HCl 4 mg tablet 4 mg PO QID PRN 11/13/17 01/03/18 History Acetaminophen [Acetaminophen 325mg 650 mg PO Q6HP PRN 01/03/18 01/03/18 History tab] Ascorbic Acid [Vitamin C] 500 mg PO BID 01/03/18 01/03/18 History Furosemide [Furosemide 80mg Tab] 80 mg PO BID 01/03/18 01/03/18 History Ipratropium/Albuterol Sulfate 3 ml IH Q4HP PRN 01/03/18 01/03/18 History [Duoneb 3mL neb] Lisinopril [Prinivil 5mg Tablet] 5 mg PO DAILY 01/03/18 01/03/18 History Loperamide HCl [Loperamide] 2 mg PO Q6HP PRN 01/03/18 01/03/18 History Mvit,Calcium,Iron,Mins/A.acids 1 each PO DAILY 01/03/18 01/03/18 History [[place] Double Strength Capsule] Pantoprazole Sodium [Protonix 40mg 40 mg PO HS 01/03/18 01/03/18 History tablet] Vits96/Iron Fum/Folic 1 each PO DAILY 01/03/18 01/03/18 History [ MVI w/Iron Tablet] Sitagliptin Phosphate [Januvia] 50 mg PO DAILY 01/03/18 01/03/18 History Zinc Sulfate [Zinc-220] 220 mg PO DAILY 01/03/18 01/03/18 History Prescriptions/Medication Reconciliation: New Sucralfate [Carafate 1gm/10mL Susp Udc] 1 gm PO ACHS udc Fluconazole [Diflucan Oral Susp 200mg/5mL 35mL] 100 mg PO DAILY 10 Days bottle Continue buspirone 10 mg tablet 10 mg PO TID amlodipine 5 mg tablet 5 mg PO DAILY #90 tab ondansetron HCl 4 mg tablet 4 mg PO QID PRN PRN Reason: Nausea Carvedilol [Carvedilol 25mg Tab] 25 mg PO BID Polyethylene Glycol 3350 [Miralax 17gm Packet] 17 gm PO DAILYP PRN powd.pack PRN Reason: Constipation Furosemide [Furosemide 80mg Tab] 80 mg PO BID Lisinopril [Prinivil 5mg Tablet] 5 mg PO DAILY Vits96/Iron Fum/Folic [ MVI w/Iron Tablet] 1 each PO DAILY Sitagliptin Phosphate [Januvia] 50 mg PO DAILY Mvit,Calcium,Iron,Mins/A.acids [[place] Double Strength Capsule] 1 each PO DAILY Ipratropium/Albuterol Sulfate [Duoneb 3mL neb] 3 ml IH Q4HP PRN PRN Reason: BREATHING Acetaminophen [Acetaminophen 325mg tab] 650 mg PO Q6HP PRN PRN Reason: PAIN Loperamide HCl [Loperamide] 2 mg PO Q6HP PRN PRN Reason: Diarrhea Fluoxetine HCl [Prozac] 40 mg PO DAILY Ticagrelor [Brilinta 90mg Tablet] 90 mg PO BID Calcium Carbonate 500 mg PO BID Zinc Sulfate [Zinc-220] 220 mg PO DAILY Ascorbic Acid [Vitamin C] 500 mg PO BID Changed Pantoprazole Sodium [Protonix 40mg tablet] 40 mg PO BID #0 Discontinued aspirin 81 mg tablet,delayed release 81 mg PO DAILY
== END 2018-01-05 11:56 ==
LOC: 2ND 17:57 → ER 17:57 → OBSVTOIN 20:20 → 2ND 20:21
PROVIDERS: ADMIT Internal Medicine Adolescent Medicine; ATTEND Internal Medicine Adolescent Medicine

== ENCOUNTER → 2018-01-08 11:00 | Outpatient (CLI) | payer MEDICARE, SELFPAY ==
--- NOTE | 2018-01-08 11:27 | XR_ITS ---
XR chest 2V HISTORY: Follow-up congestive heart failure ITS.REASON: . ORDERING PHYSICIAN: Warren Cain MD PATIENT AGE: 72 years COMPARISON: 01/01/2018 FINDINGS: Overlying artifact from patient's cardiac monitoring device. There is cardiomegaly with pulmonary venous congestion and small bilateral effusions consistent with CHF overall not significant change. IMPRESSION: No change CHF with bilateral effusions
[2018-01-08 12:26] LABS: Anion Gap 11.3 mEq/L (5-15); Blood Urea Nitrogen 32 mg/dL (7-18); Calcium 8.7 mg/dL (8.5-10.1); Carbon Dioxide 32 mmol/L (21.0-32.0); Chloride 102 mmol/L (98-107); Creatinine,Serum 1.55 mg/dL (0.55-1.02); Estimated Glomerular Filt Rate 33 ml/min (>60); GFR (African American) 40 ML/MIN (>60); Glucose 204 mg/dL (74-106); Potassium 3.3 mmoL/L (3.5-5.1); Sodium 142 mmol/L (136-145)
== END ==
PROVIDERS: Family Provider Internal Medicine Adolescent Medicine; PCP Internal Medicine Adolescent Medicine; Visit Provider Internal Medicine
DX: R06.02 Shortness of breath (principal); I25.10 Atherosclerotic heart disease of native coronary artery without angina pectoris
CPT/HCPCS: 36415; 71046; 80048; 83880

== ENCOUNTER 2018-01-19 07:57 | Outpatient (CLI) | payer MEDICARE, SELFPAY ==
[2018-01-19] VITALS (20 sets, daily range): BP systolic 76–129; BP diastolic 51–75; PULSE 70–91; RESP 16–20; TEMP 36.2–36.8; O2SAT 91–98; BMI 26.5
[2018-01-19 08:43] LABS: Basophils % 0.1 % (0.1-2.0); Eosinophils # 0.1 K/mm3 (0.0-0.4); Eosinophils % 0.6 % (0.1-12.0); Hematocrit 29.1 % (37.0-47.0); Hemoglobin 8.9 g/dL (12.2-16.2); Lymphocytes # 0.3 K/mm3 (0.7-4.5); Lymphocytes % 1.7 K/mm3 (10-50); Mean Corpuscular HGB Conc 30.4 g/dL (31.8-35.4); Mean Corpuscular Hemoglobin 27.3 pg (27.0-31.2); Mean Corpuscular Volume 89.7 fl (81-99); Mean Platelet Volume 7.9 fl (7.4-10.4); Monocytes # 0.5 K/mm3 (0.1-1.0); Neutrophils # 16.9 K/mm3 (1.8-7.8); Neutrophils % 94.6 % (37.0-80.0); Platelet Count 504 K/mm3 (142-424); Red Blood Count 3.25 M/mm3 (4.20-5.40); White Blood Count 17.9 K/mm3 (4.8-10.8)
[2018-01-19 08:48] LABS: Alanine Aminotransferase 18 U/L (12-78); Albumin Level 1.8 gm/dL (3.4-5.0); Albumin/Globulin Ratio 0.4 (1.1-1.8); Alkaline Phosphatase 160 U/L (46-116); Anion Gap 5.4 mEq/L (5-15); Aspartate Amino Transferase 17 U/L (15-37); Bilirubin,Total 0.7 mg/dL (0.2-1.0); Blood Urea Nitrogen 21 mg/dL (7-18); Calcium 8.7 mg/dL (8.5-10.1); Carbon Dioxide 35 mmol/L (21.0-32.0); Chloride 103 mmol/L (98-107); Creatinine Clearance Estimated 34 mL/min (0-300); Creatinine,Serum 1.43 mg/dL (0.55-1.02); Estimated Glomerular Filt Rate 36 ml/min (>60); GFR (African American) 44 ML/MIN (>60); Globulin 4.4 gm/dl (1.3-3.2); Glucose 175 mg/dL (74-106); Sodium 141 mmol/L (136-145); Total Protein,Serum 6.2 gm/dL (6.4-8.2)
[2018-01-19 08:49] LABS: MANUAL DIFFERENTIAL MANUAL DIFFERENTIAL (MANUAL DIFF); Potassium 2.4 mmoL/L (3.5-5.1)
--- NOTE | 2018-01-19 08:56 | PC.NURSE ---
Notified Dr Gonzales of critical K+ of 2.4. 60 meq po once now ordered.
[2018-01-19 09:53] LABS: Lymphocytes % 2 % (10-50); Monocytes % 2 % (2-9); Neutrophils % 96 % (42-76); Platelet Estimate Slight Increase; RBC Morphology Normal; Total Cells Counted 100
[2018-01-19 16:45] LABS: Hematocrit 39.9 % (37.0-47.0)
[2018-01-19 16:48] LABS: Hemoglobin 12.2 g/dL (12.2-16.2)
== END 2018-01-19 19:10 ==
LOC: INF 07:58
PROVIDERS: Internal Medicine Adolescent Medicine; Family Provider Internal Medicine Adolescent Medicine; PCP Internal Medicine Adolescent Medicine; Visit Provider Internal Medicine Adolescent Medicine
DX: D64.9 Anemia, unspecified (principal)
CPT/HCPCS: 36430; 80053; 85007; 85014; 85018; 85025; 86850; P9016

== ENCOUNTER 2018-01-25 08:30 | Outpatient (RCR) | payer MEDICARE, SELFPAY ==
--- NOTE | 2018-01-25 09:24 | [facility].PTOPWND ---
Rehab Outpt Wound Evaluation Rehab OP Wound Evaluation Start: 01/25/18 08:34 Freq: Status: Active Protocol: Document 01/25/18 09:13 ASTRID (Rec: 01/25/18 09:24 PHORNE [id number]) Electronically Signed By Ray Brown, PT 01/25/18 09:13 Subjective/History History History Pt is 72 yowf ns home resident who presents with c/o right heel ulcer x~ 1 wk. She reports pain min the right foot that comes and goes and edema present for several years. She has extensive hx of CAD with CABG and recent cardiac stents, HTN, and DM-II . SHe reports beeing in bed more recently which has possibly facilitated the heel wound. She is unable to transfer independently and spends most of her time in wheelchair. Subjective Subjective Pt c/o 5/10 pain currently in right heel, reports significant drainage from right heel ulcer. presents with nio dressing in place this am. Wound presents with soft, black center with surrounding red/purple tissue. Wound Eval Wound Right Lateral Heel Wound Type Pressure Ulcer Is This a Chronic Wound No Wound Staging Unstageable Query Text:Stage I - Unbroken, red skin, no blanching. Stage II - Skin broken, superficial skin loss involving epidermis alone or also dermis. Partial loss of skin layers. Stage III - Pressure area involves epidermis, dermis and subcutaneous tissue, full thickness skin loss. Stage IV - Pressure area involves epidermis, subcutaneous tissue, bone and other supportive tissue. Full thickness skin loss with extensive destruction of underlying tissue and structures. Wound Length (cm) 3.3 Wound Width (cm) 3.5 Percentage of Eschar (Black) (%) 60 Wound Margins Description Well Defined Surrounding Tissue Appearance Crouch Purple Edematous Edema Type Pitting Edema Degree 2+ Query Text:1+ Trace, Barely Detectable, Rebound 15-30 second
== END 2018-01-25 08:31 | disposition home or self-care (01) ==
LOC: PT 08:30
PROVIDERS: Family Provider Internal Medicine Adolescent Medicine; PCP Internal Medicine Adolescent Medicine; Visit Provider Internal Medicine Adolescent Medicine
DX: L03.115 Cellulitis of right lower limb (principal)
CPT/HCPCS: 97162